=== PATIENT | male | born 1935 | race Caucasian/White ===

== ENCOUNTER 2019-03-05 10:25 | Inpatient (IN) | payer OTHER ==
[2019-03-05 11:09] LABS: Absolute Lymphocytes (CBC) 0.9 K/uL (0.7-4.9); Basophils % 0.3 % (0-1.3); Hematocrit 45.5 % (39.6-49.0); Lymphocytes % 9.4 % (15.3-44.8); MPV 10.6 fL (7.6-11.3); RBC Red Blood Cell Count 4.58 M/uL (4.33-5.43)
[2019-03-05 11:13] LABS: Protime INR 1.08
[2019-03-05] MEDS ORDERED: NA CHLORIDE 0.9% 1,000 ML ONE ×3 (11:13→14:39)
[2019-03-05 11:18] LABS: Blood Gas Oxyhemoglobin 85.6 % (94-97); Blood O2 Saturation 87.9 % (92-98.5)
[2019-03-05 11:36] LABS: ALT/SGPT 48 U/L (12-78); AST/SGOT 27 U/L (15-37); Albumin 3.7 g/dL (3.4-5.0); Alkaline Phosphatase 70 U/L (45-117); BUN Blood Urea Nitrogen 54 mg/dL (7-18); Bicarbonate 25 mmol/L (21-32); Bilirubin Direct 0.4 mg/dL (0-0.2); Bilirubin Total 1.3 mg/dL (0.2-1.0); Creatine Phosphokinase 496 U/L (39-308); Lipase 691 U/L (73-393); Potassium 5.4 mmol/L (3.5-5.1); Protein, Total 9.6 g/dL (6.4-8.2); Sodium Level 123 mmol/L (136-145); Troponin (Emerg Dept Use Only) < 0.02 ng/mL (0.0-0.045)
[2019-03-05 11:42] LABS: Glucose Level 1468 mg/dL (74-106)
--- NOTE | 2019-03-05 11:53 | RAD REPORT ---
EXAM DESCRIPTION: RAD - Chest Single View - 03/05/2019 11:37 am CLINICAL HISTORY: DYSPNEA Chest pain. COMPARISON: Chest Pa And Lat (2 Views) dated 04/01/2018; Chest Single View dated 11/26/2016; Chest Si ngle View dated 08/06/2016; Chest Pa And Lat (2 Views) dated 11/14/2015 FINDINGS: Portable technique limits examination quality. Linear opacities are present in both lung bases likely atelectasis. No focal infiltrate is seen sugge sting pneumonia. The heart is normal in size. No displaced fractures.Aortic atherosclerosis. IMPRESSION: Linear subsegmental atelectasis is present in both lung bases.
[2019-03-05] MEDS ORDERED: INSULIN -REGULAR HUMAN 100 UNIT in NA CHLORIDE 0.9% 100 ML IV SCH ×2 (12:00→18:03)
--- NOTE | 2019-03-05 12:09 | RAD REPORT ---
EXAM DESCRIPTION: CT - Thorax Wo Con CLINICAL HISTORY: Chest pain dyspnea COMPARISON: Thorax Wo Con dated 10/10/2016; Chest Single View dated 03/05/2019 FINDINGS: Emphysematous changes are present throughout the lungs. Bronchiectasis is present in both posterior lower lobes with mucus plugging suspected medially. Mild atelectasis is also present in bot h lung bases. No pleural thickening or pleural effusion. No pneumothorax. No axillary, mediastinal or hilar adenopathy. No acute fracture seen. Fatty liver. All CT scans are performed using dose optimization technique as appropriate and may include automated exposure control or mA/KV adjustment according to patient size. IMPRESSION: Emphysema with mild bronchiectasis in both posterior lung bases with mucus plugging evid ent.
[2019-03-05] MEDS ORDERED: ALBUTEROL 2.5 MG/3 ML NEB SOL ONE (12:24)
[2019-03-05] MEDS ORDERED: Levofloxacin 750mg IV 750 MG/150 ML BAG IV ONE (12:57)
[2019-03-05 13:26] LABS: Urine Blood 2+ (NEG); Urine Glucose 2+ (NEG); Urine Protein NEGATIVE (NEG); Urine Specific Gravity 1.005 (1.005-1.030); Urine pH 5.5 (5.0-7.0)
--- NOTE | 2019-03-05 13:32 | ER ---
Nurse's Notes [facility] Name: Javi Pickett Age: 83 yrs Sex: Male : 1935 Arrival Date: 03/05/2019 Time: 10:36 Bed 8 Private MD: Diagnosis: Acute and chronic respiratory failure with hypoxia;Diabetes mellitus due to underlying condition with hyperosmolarity without nonketotic hyperglycemic-hyperosmolar coma ([facility]);Dehydration;Acute kidney failure;Other sepsis;Hyperkalemia Presentation: 03/05 10:36 Presenting complaint: EMS states: Patient fell last night in his bathroom, patient aj1 reports that he was tired after taking his night time medication so he slept on the bathroom floor. EMS reports that patient had pillows and blankets in the bathroom. Patient was 82% on room air upon EMS, Patient was given albuterol and atrovent nebulizer en route. Patient reports shortness of breath since last night, productive cough, nasal congestion. Denies fever. Patient appears drowsy and falls asleep during conversation. Patient reports that he takes his sleeping medications at midnight and usually sleep until between noon and 2. Breath sound with rhonchi bilaterally. Transition of care: patient was not received from another setting of care. Onset of symptoms was March 05, 2019. Risk Assessment: Do you want to hurt yourself or someone else? Patient reports no desire to harm self or others. Initial Sepsis Screen: Does the patient meet any 2 criteria? Altered Mental Status. HR > 90 bpm. Yes Does the patient have a suspected source of infection? Yes: Productive cough/pneumonia. Care prior to arrival: None. 10:36 Method Of Arrival: EMS: [facility] aj1 10:36 Acuity: KAM 2 aj1 Triage Assessment: 10:47 General: Appears in no apparent distress. comfortable, Behavior is calm, cooperative, aj1 appropriate for age. Pain: Denies pain. Respiratory: Reports shortness of breath Onset: The symptoms/episode began/occurred yesterday, the patient has mild shortness of breath. Historical: - Allergies: 10:47 NKDA; aj1 - Home Meds: 10:47 Flexeril 10 mg Oral tab 1 tab 3 times per day [Active]; tamsulosin 0.4 mg oral cp24 1 aj1 cap once daily [Active]; Avodart 0.5 mg Oral cap 1 cap once daily [Active]; levothyroxine 88 mcg tab 1 tab once daily [Active]; zaleplon 10 mg oral cap 1 cap at bedtime [Active]; Lyrica 150 mg Oral 2 times per day [Active]; Seroquel 50 mg Oral tab at bedtime [Active]; spironolacton-hydrochlorothiaz 25-25 mg Oral tab 1 tab once daily [Active]; Zocor 40 mg oral tab once daily [Active]; metoprolol tartrate 50 mg oral tab once daily [Active]; hydrocodone-acetaminophen 5-325 mg oral tab as needed [Active]; - PMHx: 10:47 chronic back pain; COPD; Hypertension; Hypothyroidism; CHF; Hyperlipidemia; aj1 - Immunization history:: Flu vaccine is up to date. - Social history:: Smoking status: Patient/guardian denies using tobacco. - Ebola Screening: : Patient denies travel to an Ebola-affected area in the 21 days before illness onset. Screenin:48 Abuse screen: Denies threats or abuse. Denies injuries from another. Nutritional aj1 screening: No deficits noted. Tuberculosis screening: No symptoms or risk factors identified. 16:30 Fall Risk Fall in past 12 months (25 points). Secondary diagnosis (15 points) impaired aj1 mobility, IV access (20 points). Ambulatory Aid- None/Bed Rest/Nurse Assist (0 pts). Gait- Weak (10 pts.). Mental Status- Overestimates/Forgets Limitations (15 pts.). Total Ramos Fall Scale indicates High Risk Score (45 or more points). Fall prevention measures have been instituted. Family Present and informed to notify staff if the need to leave the bedside As available patient and family educated on Fall Prevention Program and Strategies. Assessment: 10:48 General: Appears comfortable, Behavior is calm, cooperative. Pain: Denies pain. Neuro: aj1 Level of Consciousness is drowsy, falls asleep during conversation. Oriented to person, place, time, situation. Cardiovascular: Denies chest pain, Heart tones S1 S2 present Patient's skin is warm and dry. Rhythm is regular. Respiratory: Reports shortness of breath Airway is patent Respiratory effort is even, unlabored, Respiratory pattern is regular, symmetrical, Breath sounds with rhonchi bilaterally. the patient has mild shortness of breath. GI: No signs and/or symptoms were reported involving the gastrointestinal system. : No signs and/or symptoms were reported regarding the genitourinary system. EENT: No signs and/or symptoms were reported regarding the EENT system. Derm: Skin is dry, Skin is pale, skin tear noted to left elbow and left knee. Musculoskeletal: No signs and/or symptoms reported regarding the musculoskeletal system. Circulation, motion, and sensation intact. 11:45 Reassessment: Patient appears in no apparent distress at this time. No changes from aj1 previously documented assessment. Patient and/or family updated on plan of care and expected duration. Pain level reassessed. Patient is alert, oriented x 3, equal unlabored respirations, skin warm/dry/pink. 12:45 Reassessment: Patient and/or family updated on plan of care and expected duration. Pain aj1 level reassessed. General: Appears in no apparent distress. comfortable, Behavior is calm, cooperative, appropriate for age. Pain: Denies pain. Neuro: Level of Consciousness is awake, alert, obeys commands, Oriented to person, place, time, situation. Cardiovascular: Patient's skin is warm and dry. Rhythm is junctional rhythm. Respiratory: Airway is patent Respiratory effort is even, unlabored, Respiratory pattern is regular, symmetrical. Derm: Skin is pale, patients forearms and hands appear dusky. 13:45 Reassessment: Patient appears in no apparent distress at this time. No changes from aj1 previously documented assessment. Patient and/or family updated on plan of care and expected duration. Pain level reassessed. Patient is alert, oriented x 3, equal unlabored respirations, skin warm/dry/pink. 14:45 Reassessment: Patient and/or family updated on plan of care and expected duration. Pain aj1 level reassessed. General: Appears in no apparent distress. comfortable, Behavior is calm, cooperative, appropriate for age. Pain: Denies pain. Neuro: Level of Consciousness is awake, alert, obeys commands, Oriented to person, place, time, situation. Cardiovascular: Patient's skin is warm and dry. Rhythm is sinus rhythm. Respiratory: Airway is patent Respiratory effort is even, unlabored, Respiratory pattern is regular, symmetrical. Derm: Skin is pale. Musculoskeletal: Circulation, motion, and sensation intact. 15:45 Reassessment: Patient appears in no apparent distress at this time. No changes from aj1 previously documented assessment. Patient and/or family updated on plan of care and expected duration. Pain level reassessed. Patient is alert, oriented x 3, equal unlabored respirations, skin warm/dry/pink. 16:30 Reassessment: Patient charting continued in [facility] from this point on. aj1 Vital Signs: 10:35 Pulse Ox 83% on R/A; aj1 10:36 BP 133 / 64 RA Sitting (auto/reg); Pulse 100; Pulse Ox 90% on 4 lpm NC; mb4 10:50 Temp 97.1(O); aj1 10:55 Weight 90.72 kg (R); Height 6 ft. 1 in. (185.42 cm) (R); aj1 11:06 BP 132 / 79; Pulse 98; Resp 19; Pulse Ox 93% on 4 lpm NC; aj1 11:36 BP 120 / 79 LA (auto/); Pulse 93 MON; Resp 17 S; Pulse Ox 93% on 4 lpm NC; mb4 12:06 BP 121 / 73; Pulse 88; Resp 18; Pulse Ox 98% on Nebulizer Mask; aj1 12:36 BP 112 / 89; Pulse 94; Resp 20; Pulse Ox 95% on Nebulizer Mask; aj1 13:06 BP 112 / 85; Pulse 93; Resp 20; Pulse Ox 98% on 4 lpm NC; aj1 13:36 BP 127 / 85; Pulse 95; Resp 18; Pulse Ox 94% on 4 lpm NC; aj1 14:06 BP 117 / 84; Pulse 96; Resp 20; Pulse Ox 96% on 4 lpm NC; aj1 14:36 BP 112 / 87; Pulse 93; Resp 18; Pulse Ox 93% on 4 lpm NC; aj1 15:00 BP 122 / 75; Pulse 95; Resp 20; Pulse Ox 95% on 4 lpm NC; aj1 15:30 BP 116 / 92; Pulse 95; Resp 22; Pulse Ox 95% 4 lpm ; aj1 16:00 BP 127 / 83; Pulse 99; Resp 20; Pulse Ox 97% on 4 lpm NC; aj1 10:55 Body Mass Index 26.39 (90.72 kg, 185.42 cm) aj1 ED Course: 10:36 Patient arrived in ED. aj1 10:36 Patient has correct armband on for positive identification. Bed in low position. Call mb4 light in reach. Side rails up X2. school lunch monitor on. Pulse ox on. NIBP on. 10:39 EKG done, by electrostatic powder coating technician. reviewed by Tommie GREENWOOD. tc 10:41 Triage completed. aj1 10:44 Tommie Nuñez PA is PHCP. jr8 10:44 Jovan Ramsey MD is Attending Physician. jr8 10:47 Arm band placed on. aj1 10:48 Shital Trinh, KEYSHAWN is Primary Nurse. aj1 10:48 No provider procedures requiring assistance completed. aj1 11:49 Chest Single View XRAY In Process Unspecified. EDMS 12:06 CT Chest Wo Con In Process Unspecified. EDMS 12:30 Lopez cath inserted, using sterile technique, 16 Fr., by entry level management, balloon inflated, to aj1 gravity drainage, urine specimen collected. Patient tolerated well. 13:29 Codey Pringle MD is Hospitalizing Provider. jr8 13:29 Missed attempt(s): 22 gauge in left forearm. Bleeding controlled, band aid applied, mb4 catheter tip intact. 14:17 Dressings: Kerlix X 1; left antecubital area non-adherent dressing x 1 left antecubital mb4 area. Wound care:. 14:30 Inserted saline lock: 20 gauge in left antecubital area, using aseptic technique. aj1 16:00 Lab(s) recollected, by me, sent to lab. mb4 16:30 Patient admitted, IV remains in place. aj1 Administered Medications: 11:18 Drug: NS 0.9% (30 ml/kg) 30 ml/kg Route: IV; Rate: bolus; Site: right forearm; aj1 14:52 Follow up: IV Status: Completed infusion; IV Intake: 2700ml aj1 12:35 Drug: Insulin Drip - (Insulin Regular Human 100 units, NS 0.9% 100 ml) {Co-Signature: aj1 ca1 (Gertrude Fields RN).} Route: IV; Rate: calculated rate; Site: right forearm; 18:00 Follow up: IV Status: Infusion continued upon admission aj1 12:35 Drug: Albuterol 2.5 mg Route: Inhalation; aj1 13:06 Drug: Albuterol 2.5 mg Route: Inhalation; aj1 13:45 Drug: Albuterol 2.5 mg Route: Inhalation; aj1 16:10 Follow up: Response: No adverse reaction aj1 13:53 Drug: LevaQUIN 750 mg Volume: 150 ml; Route: IVPB; Infused Over: 90 mins; Site: left aj1 antecubital; 16:10 Follow up: IV Status: Completed infusion; IV Intake: 150ml aj1 22:12 Follow up: IV Status: Infusion continued upon admission; IV Intake: 200ml aj1 14:52 Drug: NS 0.9% 1000 ml Route: IV; Rate: 100 ml/hr; Site: right forearm; aj1 Point of Care Testing: Blood Glucose: 13:30 Blood Glucose: High (>450 mg/dL); aj1 14:30 Blood Glucose: High (>450 mg/dL); aj1 Ranges: Intake: 14:52 IV: 2700ml; Total: 2700ml. aj1 16:10 IV: 150ml; Total: 2850ml. aj1 22:12 IV: 200ml; Total: 3050ml. aj1 Outcome: 13:31 Decision to Hospitalize by Provider. jr8 18:00 Admitted to ICU accompanied by nurse, accompanied by sissy, family with patient, via aj1 stretcher, with oxygen, on monitor, with chart, Report called to KEYSHAWN Penaloza in ICU 18:00 critical 18:00 Discharge instructions given to family, Instructed on the need for admit, Demonstrated understanding of instructions. 18:54 Patient left the ED. aj1 Signatures: Dispatcher [employer] Shital Ibrahim RN RN aj1 Tommie Nuñez PA PA jr8 Lucita Chang EKG Tech EK Idania Bang 4 Gertrude Fields RN ca1
--- NOTE | 2019-03-05 13:33 | EDPHYS ---
Physician Documentation [facility] Name: Javi Pickett Age: 83 yrs Sex: Male : 1935 Arrival Date: 03/05/2019 Time: 10:36 Bed 8 Private MD: ED Physician Jovan Ramsey HPI: 03/05 13:32 This 83 yrs old Male presents to ER via EMS with complaints of Shortness Of jr8 Breath. 13:32 The patient has shortness of breath at rest. Onset: The symptoms/episode began/occurred jr8 gradually, 2 day(s) ago, and became worse and became persistent. Duration: The symptoms are continuous. The patient's shortness of breath is aggravated by nothing, is alleviated by nothing. Associated signs and symptoms: Pertinent positives: general weakness and near syncope . Severity of symptoms: At their worst the symptoms were moderate in the emergency department the symptoms are unchanged. The patient has not experienced similar symptoms in the past. The patient has not recently seen a physician. Historical: - Allergies: 10:47 NKDA; aj1 - Home Meds: 10:47 Flexeril 10 mg Oral tab 1 tab 3 times per day [Active]; tamsulosin 0.4 mg oral cp24 1 aj1 cap once daily [Active]; Avodart 0.5 mg Oral cap 1 cap once daily [Active]; levothyroxine 88 mcg tab 1 tab once daily [Active]; zaleplon 10 mg oral cap 1 cap at bedtime [Active]; Lyrica 150 mg Oral 2 times per day [Active]; Seroquel 50 mg Oral tab at bedtime [Active]; spironolacton-hydrochlorothiaz 25-25 mg Oral tab 1 tab once daily [Active]; Zocor 40 mg oral tab once daily [Active]; metoprolol tartrate 50 mg oral tab once daily [Active]; hydrocodone-acetaminophen 5-325 mg oral tab as needed [Active]; - PMHx: 10:47 chronic back pain; COPD; Hypertension; Hypothyroidism; CHF; Hyperlipidemia; aj1 - Immunization history:: Flu vaccine is up to date. - Social history:: Smoking status: Patient/guardian denies using tobacco. - Ebola Screening: : Patient denies travel to an Ebola-affected area in the 21 days before illness onset. ROS: 13:32 Eyes: Negative for injury, pain, redness, and discharge, ENT: Negative for injury, jr8 pain, and discharge, Neck: Negative for injury, pain, and swelling, Cardiovascular: Negative for chest pain, palpitations, and edema, Abdomen/GI: Negative for abdominal pain, nausea, vomiting, diarrhea, and constipation, Back: Negative for injury and pain, MS/Extremity: Negative for injury and deformity, Skin: Negative for injury, rash, and discoloration. 13:32 Respiratory: Positive for dyspnea on exertion, shortness of breath. 13:32 Neuro: Positive for near syncope. Exam: 13:32 Eyes: Pupils equal round and reactive to light, extra-ocular motions intact. Lids and jr8 lashes normal. Conjunctiva and sclera are non-icteric and not injected. Cornea within normal limits. Periorbital areas with no swelling, redness, or edema. ENT: Nares patent. No nasal discharge, no septal abnormalities noted. Tympanic membranes are normal and external auditory canals are clear. Oropharynx with no redness, swelling, or masses, exudates, or evidence of obstruction, uvula midline. Mucous membranes dry. Neck: Trachea midline, no thyromegaly or masses palpated, and no cervical lymphadenopathy. Supple, full range of motion without nuchal rigidity, or vertebral point tenderness. No Meningismus. Cardiovascular: Regular rate and rhythm with a normal S1 and S2. No gallops, murmurs, or rubs. Normal PMI, no JVD. No pulse deficits. 13:32 Abdomen/GI: Soft, non-tender, with normal bowel sounds. No distension or tympany. No guarding or rebound. No evidence of tenderness throughout. Back: No spinal tenderness. No costovertebral tenderness. Full range of motion. MS/ Extremity: Pulses equal, no cyanosis. Neurovascular intact. Full, normal range of motion. Neuro: Awake and alert, GCS 15, oriented to person, place, time, and situation. Cranial nerves II-XII grossly intact. Motor strength 5/5 in all extremities. Sensory grossly intact. Cerebellar exam normal. Normal gait. 13:32 Constitutional: The patient appears alert, sleepy 13:32 Respiratory: the patient does not display signs of respiratory distress, Respirations: tachypnea, that is mild, Breath sounds: are clear throughout, no bronchial sounds, no decreased breath sounds, no rales, rhonchi, no stridor, no wheezing. 13:32 Skin: Appearance: Color: normal in color, pink, Temperature: normal temperature, Moisture: dry. Vital Signs: 10:35 Pulse Ox 83% on R/A; aj1 10:36 BP 133 / 64 RA Sitting (auto/reg); Pulse 100; Pulse Ox 90% on 4 lpm NC; mb4 10:50 Temp 97.1(O); aj1 10:55 Weight 90.72 kg (R); Height 6 ft. 1 in. (185.42 cm) (R); aj1 11:06 BP 132 / 79; Pulse 98; Resp 19; Pulse Ox 93% on 4 lpm NC; aj1 11:36 BP 120 / 79 LA (auto/); Pulse 93 MON; Resp 17 S; Pulse Ox 93% on 4 lpm NC; mb4 12:06 BP 121 / 73; Pulse 88; Resp 18; Pulse Ox 98% on Nebulizer Mask; aj1 12:36 BP 112 / 89; Pulse 94; Resp 20; Pulse Ox 95% on Nebulizer Mask; aj1 13:06 BP 112 / 85; Pulse 93; Resp 20; Pulse Ox 98% on 4 lpm NC; aj1 13:36 BP 127 / 85; Pulse 95; Resp 18; Pulse Ox 94% on 4 lpm NC; aj1 14:06 BP 117 / 84; Pulse 96; Resp 20; Pulse Ox 96% on 4 lpm NC; aj1 14:36 BP 112 / 87; Pulse 93; Resp 18; Pulse Ox 93% on 4 lpm NC; aj1 15:00 BP 122 / 75; Pulse 95; Resp 20; Pulse Ox 95% on 4 lpm NC; aj1 15:30 BP 116 / 92; Pulse 95; Resp 22; Pulse Ox 95% 4 lpm ; aj1 16:00 BP 127 / 83; Pulse 99; Resp 20; Pulse Ox 97% on 4 lpm NC; aj1 10:55 Body Mass Index 26.39 (90.72 kg, 185.42 cm) aj1 MDM: 10:44 Patient medically screened. [facility] 13:27 Data reviewed: vital signs, nurses notes, lab test result(s), EKG, radiologic studies, 8 CT scan, plain films. Data interpreted: Pulse oximetry: on room air is 83 %. Interpretation: normal. Counseling: I had a detailed discussion with the patient and/or guardian regarding: the historical points, exam findings, and any diagnostic results supporting the discharge/admit diagnosis, lab results, radiology results, the need for further work-up and treatment in the hospital. Physician consultation: Codey Pringle MD was called at 13:29, was contacted at 13:29, regarding admission, to the ICU, patient's condition, and will see patient in unit. 13:31 ED course: Discussed new onset of problems with patient and . Understood that he jr8 will be going to ICU for next 1-2 days . 03/05 10:54 Order name: ABG [facility] 03/05 10:54 Order name: Basic Metabolic Panel; Complete Time: 11:44 [facility] 03/05 10:54 Order name: Blood Culture Adult (2) [facility] 03/05 10:54 Order name: CBC with Diff; Complete Time: 11: [facility] 03/05 10:54 Order name: CPK; Complete Time: 11:44 [facility] 03/05 10:54 Order name: Lactate; Complete Time: 11:43 [facility] 03/05 10:54 Order name: LFT's; Complete Time: 11:44 [facility] 03/05 10:54 Order name: Lipase; Complete Time: 11: [facility] 03/05 10:54 Order name: Procalcitonin; Complete Time: 11: [facility] 03/05 10:54 Order name: Protime (+inr); Complete Time: 11: [facility] 03/05 10:54 Order name: Ptt, Activated; Complete Time: 11: [facility] 03/05 10:54 Order name: Troponin (emerg Dept Use Only); Complete Time: 11:44 [facility] 03/05 10:54 Order name: Urine Microscopic Only; Complete Time: 14:21 [facility] 03/05 11:13 Order name: Glucose, Ancillary Testing; Complete Time: 11:21 [facility] 03/05 10:54 Order name: Chest Single View XRAY; Complete Time: 12:25 [facility] 03/05 11:42 Order name: Osmolality, Serum; Complete Time: 15:29 [facility] 03/05 11:50 Order name: ABG Arterial Blood Gas [facility] 03/05 13:21 Order name: Urine Dipstick--Ancillary (enter results); Complete Time: 13:37 3 03/05 13:42 Order name: Glucose; Complete Time: 14:21 [facility] 03/05 14:34 Order name: Glucose; Complete Time: 15:51 [facility] 03/05 15:35 Order name: Glucose [facility] 03/05 15:35 Order name: Troponin I [facility] 03/05 16:31 Order name: Lactate Sepsis 2 HR Follow-up; Complete Time: 16:31 [facility] 03/05 16:31 Order name: Glucose Level; Complete Time: 16:31 [facility] 03/05 16:31 Order name: Troponin I; Complete Time: 16:31 [facility] 03/05 16:34 Order name: Glucose [facility] 03/05 17:25 Order name: Glucose Level; Complete Time: 17:26 [facility] 03/05 17:28 Order name: Glucose [facility] 03/05 18:34 Order name: Glucose Level; Complete Time: 06:41 [facility] 03/05 18:51 Order name: Glucose, Ancillary Testing; Complete Time: 06:41 [facility] 03/05 10:54 Order name: Accucheck; Complete Time: 11:18 03/05 10:54 Order name: Cardiac monitoring; Complete Time: 10:55 [facility] 03/05 10:54 Order name: EKG - Nurse/Tech; Complete Time: 10:55 [facility] 03/05 10:54 Order name: IV Saline Lock - Large Bore; Complete Time: 10:55 03/05 10:54 Order name: Labs collected and sent; Complete Time: 10:55 [facility] 03/05 10:54 Order name: O2 Per Protocol; Complete Time: 10:56 03/05 10:54 Order name: O2 Sat Monitoring; Complete Time: 10:56 03/05 10:54 Order name: Urine Dipstick-Ancillary (obtain specimen); Complete Time: 13:53 [facility] 03/05 11:46 Order name: Lopez; Complete Time: 13:45 [facility] 03/05 11:50 Order name: CT Chest Wo Con; Complete Time: 12:25 [facility] 03/05 14:15 Order name: EKG Electrocardiogram [facility] 03/05 15:49 Order name: Labs - recollect needed; Complete Time: 16:09 eb Administered Medications: 11:18 Drug: NS 0.9% (30 ml/kg) 30 ml/kg Route: IV; Rate: bolus; Site: right forearm; aj1 14:52 Follow up: IV Status: Completed infusion; IV Intake: 2700ml aj1 12:35 Drug: Insulin Drip - (Insulin Regular Human 100 units, NS 0.9% 100 ml) {Co-Signature: aj1 ca1 (Gertrude Fields RN).} Route: IV; Rate: calculated rate; Site: right forearm; 18:00 Follow up: IV Status: Infusion continued upon admission aj1 12:35 Drug: Albuterol 2.5 mg Route: Inhalation; aj1 13:06 Drug: Albuterol 2.5 mg Route: Inhalation; aj1 13:45 Drug: Albuterol 2.5 mg Route: Inhalation; aj1 16:10 Follow up: Response: No adverse reaction aj1 13:53 Drug: LevaQUIN 750 mg Volume: 150 ml; Route: IVPB; Infused Over: 90 mins; Site: left aj antecubital; 16:10 Follow up: IV Status: Completed infusion; IV Intake: 150ml aj1 22:12 Follow up: IV Status: Infusion continued upon admission; IV Intake: 200ml aj1 14:52 Drug: NS 0.9% 1000 ml Route: IV; Rate: 100 ml/hr; Site: right forearm; aj1 Point of Care Testing: Blood Glucose: 13:30 Blood Glucose: High (>450 mg/dL); aj1 14:30 Blood Glucose: High (>450 mg/dL); aj1 Ranges: Critical Glucose Levels:Adult <50 mg/dl or >400 mg/dl <40 mg/dl or >180 mg/dl Disposition: 13:31 Critical Care:. gordy Disposition: 03/05/19 13:31 Hospitalization ordered by Codey Pringle for Inpatient Admission. Preliminary diagnosis are Acute and chronic respiratory failure with hypoxia, Diabetes mellitus due to underlying condition with hyperosmolarity without nonketotic hyperglycemic-hyperosmolar coma (NKHHC), Dehydration, Acute kidney failure, Other sepsis, Hyperkalemia. - Bed requested for Intensive Care Unit. - Status is Inpatient Admission. aj1 - Condition is Fair. - Problem is new. - Symptoms have improved. UTI on Admission? No Critical care time excluding procedures: 13:31 Critical care time: Bedside Care: 20 minutes, Consultation: 10 minutes, Family jr8 Intervention: 15 minutes. Total time: 45 minutes Addendum: 03/10/2019 14:44 Co-signature as Attending Physician, Jovan Ramsey MD. g s Signatures: Dispatcher [employer] EDShital Kaur RN RN aj1 JacksonManasa bowie RN RN dw Tommie Nuñez, PA PA jr8 Jovan Ramsey MD MD Vilma Jimenez RN ca1 Corrections: (The following items were deleted from the chart) 03/05 14: 13:31 Hospitalization Ordered by Codey Pringle MD for Inpatient Admission. Preliminary eb diagnosis is Acute and chronic respiratory failure with hypoxia; Diabetes mellitus due to underlying condition with hyperosmolarity without nonketotic hyperglycemic-hyperosmolar coma (NKHHC); Dehydration; Acute kidney failure; Other sepsis; Hyperkalemia. Bed requested for Intensive Care Unit. Status is Inpatient Admission. Condition is Fair. Problem is new. Symptoms have improved. UTI on Admission? No. jr8 16:37 14:26 03/05/2019 13:31 Hospitalization Ordered by Codey Pringle MD for Inpatient Admission. Preliminary diagnosis is Acute and chronic respiratory failure with hypoxia; Diabetes mellitus due to underlying condition with hyperosmolarity without nonketotic hyperglycemic-hyperosmolar coma (NKHHC); Dehydration; Acute kidney failure; Other sepsis; Hyperkalemia. Bed requested for Intensive Care Unit. Status is Inpatient Admission. Condition is Fair. Problem is new. Symptoms have improved. UTI on Admission? No. eb 18:54 16:37 03/05/2019 13:31 Hospitalization Ordered by Codey Pringle MD for Inpatient aj1 Admission. Preliminary diagnosis is Acute and chronic respiratory failure with hypoxia; Diabetes mellitus due to underlying condition with hyperosmolarity without nonketotic hyperglycemic-hyperosmolar coma (NKHHC); Dehydration; Acute kidney failure; Other sepsis; Hyperkalemia. Bed requested for Intensive Care Unit. Status is Inpatient Admission. Condition is Fair. Problem is new. Symptoms have improved. UTI on Admission? No. dw
[2019-03-05 13:42] LABS: Urine Bacteria NONE SEEN /HPF (NONE SEEN); Urine RBC <5 /HPF (NONE SEEN)
[2019-03-05 13:43] LABS: Urine Culture Reflex Order NOT NEEDED
[2019-03-05 16:29] LABS: Troponin I < 0.02 ng/mL (0.0-0.045)
[2019-03-05 16:30] LABS: Glucose Level 964 mg/dL (74-106)
[2019-03-05] MEDS ORDERED: D50W 25 GM/50 ML SYRINGE IV PRN ×2 (18:03)
[2019-03-05] MEDS ORDERED: ONDANSETRON 4 MG/2 ML VIAL IV PRN (18:03)
[2019-03-05] MEDS ORDERED: GLUCAGON 1 MG/VIAL IM PRN (18:03)
[2019-03-05] MEDS: NA CHLORIDE 0.9% 1,000 ML IV SCH (18:03)
[2019-03-05] MEDS ORDERED: MORPHINE 4 MG/ML SYR IV PRN (18:03)
[2019-03-05] MEDS ORDERED: ENOXAPARIN 40 MG/0.4 ML SQ SCH (19:00)
[2019-03-05 19:29] LABS: Potassium 4.1 mmol/L (3.5-5.1)
[2019-03-05] MEDS ORDERED: HYDROCODONE/APAP 10/325 TAB PO PRN (19:59)
--- NOTE | 2019-03-05 20:10 | P.HP ---
Certification for Inpatient Patient admitted to: Inpatient With expected LOS: >2 Midnights Practitioner: I am a practitioner with admitting privileges, knowledge of patient current condition, hospital course, and medical plan of care. Services: Services provided to patient in accordance with Admission requirements found in Title 42 Section 412.3 of the Code of Federal Regulations Patient History Date of Service: 03/05/19 Reason for admission: FALLS OFTEN History of Present Illness: MR. MARX IS 83 YEARS OLD GM WITH COPD, SEVERE CHEMICAL NEUROPATHY, SEVERE INSOMNIA WHOSE LAST GLUCOSE WAS IN 110 RANGE COMES WITH FRQUENT FALLS, HAS GLUCOSE OF 1400 TODAY AND DEHYDRATION. I CHECKED MY RECORDS, I HAVE GIVEN HIM ORDER TO DO LAB WORK ABOUT5 TIMES IN LAST TWO YEARS BUT HE HAS NOT DONE SO. HE IS NOT FORGETFUL BUT HE JUST IGNORED THE ADVISE. 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 HE LATELY HAS BEEN LETHARGIC AND FALLING OFTEN PER . Allergies Albuterol Allergy (Mild, Uncoded 10/21/15 22:42) Unknown Home Medications: Dutasteride [Avodart*] 0.5 mg PO BEDTIME 08/07/13 Quetiapine [Seroquel*] 50 mg PO BEDTIME 08/07/13 Simvastatin 20 mg PO BEDTIME 08/07/13 Budesonide/Formoterol Fumarate [Symbicort 160-4.5 Mcg Inhaler] 1 puff IN DAILY 10/21/15 Cyclobenzaprine HCl [Flexeril] 10 mg PO TID PRN 10/21/15 Hydrocodone 10/APAP 325 [[place] 10/325*] 1 tab PO Q6HR PRN 10/21/15 Levothyroxine Sodium 88 mcg PO DAILY 10/21/15 Zaleplon [Sonata] 10 mg PO BEDTIME 10/21/15 Tamsulosin [Flomax*] 0.4 mg PO BEDTIME #30 cap 10/25/15 Pregabalin [Lyrica] 150 mg PO BID 03/05/19 Spironolact/Hydrochlorothiazid [Spironolactone-Hctz 25-25 Tab] 1 each PO DAILY 03/05/19 - Past Medical/Surgical History Has patient received pneumonia vaccine in the past: Yes Diabetic: No -: HTN -: BPH -: INSOMNIA -: HIGH CHOLESTEROL -: HYPOTHYROIDISM -: COPD -: CHRONIC BACK PAIN -: PARATHYROID nodule removed - Family History Mother -: Hypertension - Social History Smoking Status: Never smoker Alcohol use: Yes CD- Drugs: No Caffeine use: Yes Place of Residence: Home Review of Systems 10-point ROS is otherwise unremarkable General: Weakness, Malaise, As per HPI Respiratory: As per HPI Physical Examination - Vital Signs Temperature: 96.5 F Blood Pressure: 122/78 Pulse: 109 Respirations: 23 Pulse Ox (%): 98 - Physical Exam General: Oriented x3, Moderate distress, Other (LETHARGIC, CLINICALLY DEHYDRATED.) HEENT: Atraumatic, PERRLA, Mucous membr. moist/pink, EOMI, Sclerae nonicteric Neck: Supple, 2+ carotid pulse no bruit, No LAD, Without JVD or thyroid abnormality Respiratory: Diminished Cardiovascular: Regular rate/rhythm, Normal S1 S2 Gastrointestinal: Normal bowel sounds, No tenderness Musculoskeletal: No tenderness Integumentary: No rashes Neurological: Normal gait, Normal speech, Normal strength at 5/5 x4 extr, Normal tone, Normal affect Lymphatics: No axilla or inguinal lymphadenopathy - Studies Laboratory Data (last 24 hrs) 03/05/19 13:35: Glucose 1157 H* 03/05/19 10:51: PT 12.7 H, INR 1.08, APTT 26.4 03/05/19 10:51: WBC 10.0, Hgb 14.4, Hct 45.5, Plt Count 144 L 03/05/19 10:51: Sodium 123 L, Potassium 5.4 H, BUN 54 H, Creatinine 3.81 H, Glucose 1468 H*, Total Bilirubin 1.3 H, AST 27, ALT 48, Alkaline Phosphatase 70 , Lipase 691 H Assessment and Plan - Problems (Diagnosis) (1) Hyperglycemia Current Visit: Yes Status: Acute Plan: HE IS ON INSULIN DRIP. I RAISED TO 10 UNITS PER HOUR. HOURLY GLUCOSE AND REDUCE DRIP DOWN TO Q4H SLIDING SCALE WHEN GLUCOSE IS DOWN TO 400. THIS IS NOT DKA. SHOULD IMPROVE BY AM. (2) Newly diagnosed diabetes Current Visit: Yes Status: Acute Plan: CHECK CPEP LEVEL. INSULIN TEACHING. MAY BE ABLE TO GET OFF INSULIN. (3) COPD (chronic obstructive pulmonary disease) Current Visit: Yes Status: Chronic Plan: NEBS PRN. Qualifiers: COPD type: emphysema Emphysema type: unspecified Qualified Code(s): J43.9 - Emphysema, unspecified (4) Prerenal azotemia Current Visit: Yes Status: Acute (5) Prerenal azotemia Current Visit: Yes Status: Acute Plan: IV FLULIDS DAILY LABS. (6) Hypoxia Onset Date: 10/24/15 Current Visit: No Status: Chronic Plan: WORSE NOW WITH ACUTE ILLNESS. CT SHOWS NO MAJOR INFECTION. (7) Insomnia Current Visit: Yes Status: Chronic Plan: MOST MEDICINES HAVE NOT WORKED BUT SONATA AND QUETIAPEN WORKED. 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 HAS SEVERE NEUROPATHY. HE HAD NEUROPATHY WAY BEFORE THIS DIABETES ONSET. - Advance Directives Does patient have a Living Will: Yes Does patient have a Durable POA for Healthcare: Yes
[2019-03-05] MEDS: QUETIAPINE 25 MG TAB PO SCH (21:00)
[2019-03-05 21:04] VITALS: BMI 28.5
[2019-03-05] MEDS: PREGABALIN 75 MG CAP PO SCH (21:33)
[2019-03-05] MEDS: ATORVASTATIN 10 MG TAB PO SCH (21:33)
[2019-03-05] MEDS: TAMSULOSIN 0.4 MG SR CAP PO SCH (21:34)
[2019-03-05] MEDS: DUTASTERIDE 0.5 MG GEL CAP PO SCH (21:53)
[2019-03-06] MEDS: NA CHLORIDE 0.9% 1,000 ML IV SCH ×2 (01:00→17:53)
[2019-03-06] MEDS: INSULIN -REGULAR HUMAN 50 UNIT/0.5 ML ML SQ SCH ×7 (03:13→22:28)
[2019-03-06] MEDS: LEVOTHYROXINE SOD 0.088 MG TAB PO SCH (06:12)
[2019-03-06] MEDS ORDERED: D50W 25 GM/50 ML SYRINGE IV PRN (06:27)
[2019-03-06] MEDS ORDERED: GLUCAGON 1 MG/VIAL IM PRN (06:27)
--- NOTE | 2019-03-06 08:40 | EKG ---
Test Date: 2019-03-05 Test Time: 10:37:22 Marketing Production Coordinator: AROLDO MEASUREMENT RESULTS: Intervals: Rate: 100 AR: 188 QRSD: 96 QT: 340 QTc: 438 [place]: P: 56 AR: 188 QRS: -3 T: 86 INTERPRETIVE STATEMENTS: Normal sinus rhythm Normal ECG Compared to ECG 11/26/2016 11:54:57 No significant changes Electronically Signed On 03-06-19 08:39:20 CDT by Remi Kapadia
[2019-03-06] MEDS: INSULIN GLARGINE 100 UNITS/ML SQ SCH (08:48)
[2019-03-06 08:50] LABS: Absolute Lymphocytes (CBC) 1.2 K/uL (0.7-4.9); Basophils % 0.3 % (0-1.3); Hematocrit 42.9 % (39.6-49.0); MPV 10.3 fL (7.6-11.3); RBC Red Blood Cell Count 4.72 M/uL (4.33-5.43)
[2019-03-06] MEDS: ASPIRIN EC 81 MG TAB PO SCH (08:50)
[2019-03-06] MEDS: HOME MED 1 EA UNK (Budesonide/Formoterol Fumarate [Symbicort 160-4.5 Mcg Inhaler] 1 PUFF) IN SCH (09:00)
[2019-03-06 09:40] LABS: Magnesium 1.9 mg/dL (1.8-2.4); Potassium 4.3 mmol/L (3.5-5.1)
[2019-03-06] MEDS: PREGABALIN 75 MG CAP PO SCH (09:54)
[2019-03-06] MEDS ORDERED: Levofloxacin500mg IV 500 MG/100 ML BAG IV SCH (13:00)
[2019-03-06] MEDS: ALBUTEROL 2.5 MG/3 ML NEB SOL NEB PRN (14:55)
[2019-03-06] MEDS: IPRATROPIUM BROM 0.5MG/2.5ML NEB PRN (14:55)
[2019-03-06] MEDS ORDERED: ENOXAPARIN 30 MG/0.3 ML SQ SCH (17:00)
--- NOTE | 2019-03-06 17:15 | PN ---
Subjective: Mr. Pickett is doing a lot better, much more awake. He is denying any chest pain, nausea, vomiting. His breathing is always slightly labored. Objective: Abdomen: No guarding, no rebound, no rigidity. Chest: Revealed good breath sounds bilaterally. Vital Signs: Blood pressure 129/47, pulse is 111, respirations 25, temperature 98, pulse ox is down at 93% on 4 L nasal cannula. Laboratory Data: His ABG, pH 7.35, pCO2 43, PO2 59. His CBC is grossly normal except for platelets slightly low at 111,000. Sodium 139, potassium 4.3, BUN 56 , creatinine 3.3 lower than yesterday, bicarb of 24. Glucose is down to 323, calcium is down to 10.4. Assessment And Plan: 1. Hyperglycemia and new onset diabetes. This gentleman was given an order for a full blood work about 4 times in the last 3 years and has not done it yet. He probably is developing diabetes over couple of years. Last blood sugar in our office was about 2-1/2 years ago and 112. He is on Lantus 20 units once a day now. Insulin drip has been discontinued. He continues to be on IV fluids. He will need IV fluids until creatinine is lower down to a normal range. His baseline creatinine is normal. 2. Chronic obstructive pulmonary disease, currently stable. 3. High procalcitonin and lactic acid. I do not see any major signs of infection. This could be just because of having inflammation and catabolic status effect on the body tissue from severe hyperglycemia. Continue antibiotic that his lungs have some chronic tree-in-bud appearance on CT scan. 4. 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 Continue current medication. He is on tramadol at home. Prognosis overall guarded. RVD/MODL Voice ID: [id number] Report ID: [id number] CASEY
--- NOTE | 2019-03-06 17:16 | RAD REPORT ---
EXAM DESCRIPTION: RAD - Chest Single View - 03/06/2019 5:07 pm CLINICAL HISTORY: Fluid overload COMPARISON: March 05 TECHNIQUE: AP portable chest image was obtained 1704 hours . FINDINGS: Lung volumes are low. Lung base atelectasis present. No significant failure or volume over load. No focal infiltrate or mass in the mid or upper lung hoyos. Heart and vasculature are normal. No measurable pleural effusion and no pneumothorax. No acute bony abnormality seen. No acute aortic f indings suspected. IMPRESSION: Exam is limited by shallow inspiration. Lung base atelectasis is present. No significant failure or volume overload.
[2019-03-06] MEDS: DUTASTERIDE 0.5 MG GEL CAP PO SCH (20:36)
[2019-03-06] MEDS: ATORVASTATIN 10 MG TAB PO SCH (20:37)
[2019-03-06] MEDS: TAMSULOSIN 0.4 MG SR CAP PO SCH (20:37)
[2019-03-06] MEDS: QUETIAPINE 25 MG TAB PO SCH (20:37)
[2019-03-07] MEDS: INSULIN -REGULAR HUMAN 50 UNIT/0.5 ML ML SQ SCH ×5 (02:02→20:25)
[2019-03-07] MEDS: NA CHLORIDE 0.9% 1,000 ML IV SCH ×4 (02:04→23:58)
[2019-03-07] MEDS: LEVOTHYROXINE SOD 0.088 MG TAB PO SCH (05:36)
[2019-03-07 05:45] LABS: Basophils % 0.2 % (0-1.3); Hematocrit 39.3 % (39.6-49.0); Lymphocytes % 15.4 % (15.3-44.8); MPV 10.1 fL (7.6-11.3); RBC Red Blood Cell Count 4.35 M/uL (4.33-5.43)
[2019-03-07 05:52] LABS: Potassium 4.9 mmol/L (3.5-5.1)
[2019-03-07 07:43] LABS: Blood Morphology Comment NOTED (NOT SEEN); Platelet Estimate DECR; Urine White Blood Cell Casts OK
[2019-03-07] MEDS: INSULIN GLARGINE 100 UNITS/ML SQ SCH (08:05)
[2019-03-07] MEDS: ASPIRIN EC 81 MG TAB PO SCH (08:06)
[2019-03-07] MEDS: HOME MED 1 EA UNK (Budesonide/Formoterol Fumarate [Symbicort 160-4.5 Mcg Inhaler] 1 PUFF) IN SCH (08:11)
[2019-03-07] MEDS: IPRATROPIUM BROM 0.5MG/2.5ML NEB PRN ×2 (08:16→17:21)
[2019-03-07] MEDS: ALBUTEROL 2.5 MG/3 ML NEB SOL NEB PRN ×2 (08:16→17:21)
--- NOTE | 2019-03-07 14:26 | PN ---
Subjective: Mr. Pickett is doing lot better. Denies any chest pain, nausea, no vomiting, who has some gurgling on his breathing. He is otherwise comfortable. Physical Examination: Vital Signs: Blood pressure 122/58, pulse is 107, temperature 97.1. O2 saturation has shown some wo rsening 89% with 2 L nasal cannula. Chest: Bilateral minimal rales, decreased breath sounds. Heart: Rate regular. Abdomen: No guarding. No rebound or rigidity. Laboratory Examination: Creatinine is coming down from 3.5 to 3.05, BUN 58 over 3.05 creatinine, glu cose 229, calcium 7.7, which is not normalizing with IV hydration. His platelets have dropped to 83, 000, which is because of Lovenox subcu. Assessment And Plan: 1.Hyperglycemia has improved. He is on Lantus now . 2.Dehydration is improved, but the same time his pulmonary findings have shown some worsening. I wi ll redo a chest x-ray stat. His nebulizer treatments of albuterol ipratropium, will cut down the IV to 50 mL/h. We will order echocardiogram with Doppler. Prognosis remains guarded. He has chronic pulmonary issues with COPD from history of smoking and zoe mical exposure with testing. RVD/MODL Voice ID: [id number] Report ID: [id number]
[2019-03-07] MEDS: Levofloxacin 250mg IV 250 MG/50 ML BAG IV SCH (15:00)
--- NOTE | 2019-03-07 16:05 | RAD REPORT ---
EXAM DESCRIPTION: Chant Single View03/07/2019 3:21 pm CLINICAL HISTORY: sob COMPARISON: 03/06/2019 FINDINGS: Bibasilar opacities probably atelectasis, less likely pneumonia The upper lobes are clear. Patient remains in a poor degree of inspiration. Heart is normal size
--- NOTE | 2019-03-07 16:07 | RAD REPORT ---
EXAM DESCRIPTION: RAD - Knee Right 2 View - 03/07/2019 3:23 pm CLINICAL HISTORY: Knee pain FINDINGS: Chondrocalcinosis No fracture or dislocation Small joint effusion is suspected
[2019-03-07] MEDS ORDERED: LIDOCAINE 5% PATCH TOP SCH (17:00)
[2019-03-07] MEDS: TAMSULOSIN 0.4 MG SR CAP PO SCH (20:26)
[2019-03-07] MEDS: DUTASTERIDE 0.5 MG GEL CAP PO SCH (20:26)
[2019-03-07] MEDS: QUETIAPINE 25 MG TAB PO SCH (20:26)
[2019-03-07] MEDS: ATORVASTATIN 10 MG TAB PO SCH (20:26)
[2019-03-07 21:03] LABS: Arterial Blood Carboxyhemoglob 1.9 % (0-1.5); Blood Gas Oxyhemoglobin 92.8 % (94-97)
[2019-03-07] MEDS: IPRATROPIUM BROM 0.5MG/2.5ML NEB SCH (21:05)
[2019-03-07] MEDS: ALBUTEROL 2.5 MG/3 ML NEB SOL NEB SCH (21:05)
[2019-03-08] MEDS: ALBUTEROL 2.5 MG/3 ML NEB SOL NEB SCH ×4 (01:40→19:25)
[2019-03-08] MEDS: IPRATROPIUM BROM 0.5MG/2.5ML NEB SCH ×4 (01:40→19:25)
[2019-03-08] MEDS: LEVOTHYROXINE SOD 0.088 MG TAB PO SCH (05:28)
[2019-03-08 06:22] LABS: Absolute Lymphocytes (CBC) 0.8 K/uL (0.7-4.9); Basophils % 0.3 % (0-1.3); Lymphocytes % 12.3 % (15.3-44.8); MPV 9.4 fL (7.6-11.3); RBC Red Blood Cell Count 3.65 M/uL (4.33-5.43)
[2019-03-08 06:40] LABS: Potassium 3.6 mmol/L (3.5-5.1)
[2019-03-08] MEDS: INSULIN GLARGINE 100 UNITS/ML SQ SCH (07:43)
[2019-03-08] MEDS: INSULIN -REGULAR HUMAN 50 UNIT/0.5 ML ML SQ SCH ×4 (07:44→21:20)
[2019-03-08] MEDS: ASPIRIN EC 81 MG TAB PO SCH (08:46)
[2019-03-08] MEDS ORDERED: LIDOCAINE 5% PATCH TOP SCH (09:00)
[2019-03-08] MEDS ORDERED: POTASSIUM CL SA 10 MEQ TAB PO ONE (09:00)
--- NOTE | 2019-03-08 09:02 | RAD REPORT ---
EXAM DESCRIPTION: RAD - Chest Single View - 03/08/2019 8:49 am CLINICAL HISTORY: Dyspnea, adventitious breath sounds COMPARISON: March 07 TECHNIQUE: AP portable chest image was obtained 0846 hours . FINDINGS: Lung volumes are lobe matching prior study. Lung base atelectasis is evident. No progressi ve lung parenchymal process seen. Bilateral pleural effusions are still evident. Heart size is normal and stable. No pneumothorax. Trachea is midline. IMPRESSION: Limited shallow inspiration film showing lung base atelectasis and small pleural effusio ns. Chest findings are stable from prior study.
[2019-03-08] MEDS: TRAMADOL HCL 50 MG TAB PO PRN (16:56)
[2019-03-08] MEDS: LIDOCAINE 5% PATCH TOP SCH (18:33)
--- NOTE | 2019-03-08 18:51 | PN ---
Subjective: Patient is feeling sleepy, fatigued, and otherwise is awake when aroused. Denies any ch est pain, nausea, vomiting. He is short of breath at rest minimally. Physical Examination: Vital Signs: Blood pressure 126/56, pulse 105, respirations 19, temperature 97.7. HEENT: No JVD. No carotid bruits. Heart: Regular. CHEST: Decreased breath sounds bilaterally. Minimal wheezing. Abdomen: No guarding, no rebound, no rigidity. Laboratory Data: His WBC count is normal, hemoglobin 11, hematocrit 33, platelets 86,000, came up sl ightly after we stopped his Lovenox. Sodium 139, potassium 3.6, chloride 108, BUN 50, creatinine is 2.3, and glucose 326. Calcium is up to 9.3. Yesterday, I did ABG which showed a pH of 7.40, pCO2 36 , PO2 71, O2 saturation of 92% on 32% FiO2 or 4 L nasal cannula. His right knee has some pain from t he fall and x-ray showed some arthritis. No broken bones. Assessment And Plan: Dehydration clinically improving. Gentle hydration given from to shortness of breath from COPD. There is no signs of congestive heart failure, pneumonia, or pulmonary embolism. CT angiogram currently because of creatinine of 2.3 for which he could not tolerate Lovenox as his pl atelets started to drop down to 8000. 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 Nebulizer treatment q.6 hours routine instead of p.r.n. Avoiding steroids right now because his sugar is high. He came with 1500 glucose and his A1c is about 11. Prognosis remains guarded. He is recovering from multisystem problem he had stopping his hydrocodone and Seroquel as he has remained v sunni stuporous. RVD/MODL Voice ID: [id number] Report ID: [id number]
[2019-03-08] MEDS: NA CHLORIDE 0.9% 1,000 ML IV SCH (19:56)
[2019-03-08] MEDS: DUTASTERIDE 0.5 MG GEL CAP PO SCH (20:09)
[2019-03-08] MEDS: APIXABAN 2.5 MG TABLET PO SCH (20:09)
[2019-03-08] MEDS: TAMSULOSIN 0.4 MG SR CAP PO SCH (20:09)
[2019-03-08] MEDS: ATORVASTATIN 10 MG TAB PO SCH (20:10)
[2019-03-09] MEDS: POLYETHYL GLY 3350 17 GM/DOSE PO PRN ×2 (01:08→21:27)
[2019-03-09] MEDS: ALBUTEROL 2.5 MG/3 ML NEB SOL NEB SCH ×4 (01:15→19:45)
[2019-03-09] MEDS: IPRATROPIUM BROM 0.5MG/2.5ML NEB SCH ×4 (01:15→19:45)
[2019-03-09] MEDS: LEVOTHYROXINE SOD 0.088 MG TAB PO SCH (05:41)
[2019-03-09] MEDS: NA CHLORIDE 0.9% 1,000 ML IV SCH ×2 (05:52→12:27)
[2019-03-09 07:04] LABS: Absolute Lymphocytes (CBC) 0.8 K/uL (0.7-4.9); Basophils % 0.2 % (0-1.3); Hematocrit 34.4 % (39.6-49.0); Lymphocytes % 10.3 % (15.3-44.8); MPV 9.6 fL (7.6-11.3); RBC Red Blood Cell Count 3.76 M/uL (4.33-5.43)
[2019-03-09 07:18] LABS: Potassium 3.9 mmol/L (3.5-5.1)
[2019-03-09] MEDS: TRAMADOL HCL 50 MG TAB PO PRN ×2 (09:33→21:26)
[2019-03-09] MEDS: ASPIRIN EC 81 MG TAB PO SCH (09:33)
[2019-03-09] MEDS: APIXABAN 2.5 MG TABLET PO SCH ×2 (09:33→21:09)
[2019-03-09] MEDS: INSULIN GLARGINE 100 UNITS/ML SQ SCH (09:34)
[2019-03-09] MEDS: INSULIN -REGULAR HUMAN 50 UNIT/0.5 ML ML SQ SCH ×4 (09:35→21:11)
--- NOTE | 2019-03-09 10:52 | ECHO ---
HEIGHT: 6 ft 1 in WEIGHT: 216 lb 0 oz DATE OF STUDY: 03/09/[address]: Codey Pringle MD 2-DIMENSIONAL: YES M.MODE: YES DOPPLER: YES COLOR FLOW: YES TDS: YES PORTABLE: NO DEFINITY: NO BUBBLE STUDY: NO DIAGNOSIS: EDEMA, DYSPNEA CARDIAC HISTORY: CATHERIZATION: NO SURGERY: NO PROSTHETIC VALVE: NO PACEMAKER: NO MEASUREMENTS (cm) DIASTOLIC (NORMALS) SYSTOLIC (NORMALS) IVSd 1.1 (0.6-1.2) LA Diam 3.9 (1.9-4.0) LVEF 60-69% LVIDd 4.3 (3.5-5.7) LVIDs 3.0 (2.0-3.5) %FS % LVPWd 1.3 (0.6-1.2) Ao Diam 2.6 (2.0-3.7) 2 DIMENSIONAL ASSESSMENT: RIGHT ATRIUM: NORMAL LEFT ATRIUM: DILATED RIGHT VENTRICLE: NORMAL LEFT VENTRICLE: NORMAL TRICUSPID VALVE: NORMAL MITRAL VALVE: NORMAL PULMONIC VALVE: NORMAL AORTIC VALVE: SCLEROSIS PERICARDIAL EFFUSION: NONE AORTIC ROOT: NORMAL LEFT VENTRICULAR WALL MOTION: NORMAL. DOPPLER/COLOR FLOW: IMPAIRED LEFT VENTRICULAR RELAXATION. NO SIGNIFICANT AORTIC STENOSIS OR AORTIC REGURGITATION. COMMENTS: NORMAL LEFT VENTRICULAR EJECTION FRACTION. DILATED LEFT ATRIUM. AORTIC SCLEROSIS WITH NO AORTIC STENOSIS OR AORTIC REGURGITATION. TECHNOLOGIST: MATHEUS WARD
[2019-03-09] MEDS: PIPER/TAZO/NS 2.25gm 2.25 GM/50 ML BAG IVPB SCH ×3 (12:06→23:45)
[2019-03-09] MEDS: Levofloxacin 250mg IV 250 MG/50 ML BAG IV SCH (12:06)
[2019-03-09] MEDS: LIDOCAINE 5% PATCH TOP SCH (16:45)
[2019-03-09] MEDS: TAMSULOSIN 0.4 MG SR CAP PO SCH (21:08)
[2019-03-09] MEDS: DUTASTERIDE 0.5 MG GEL CAP PO SCH (21:08)
[2019-03-09] MEDS: ATORVASTATIN 10 MG TAB PO SCH (21:09)
--- NOTE | 2019-03-09 22:45 | PN ---
Subjective: Mr. Stanley is doing okay. Does not have any chest pain, nausea, or vomiting. He is coughing up some yellow-green phlegm now. Physical Examination: Vital Signs: Blood pressure 128/62, pulse 103, and temperature 97.3. HEENT: No JVD. No carotid bruits. Heart: REGULAR S1 AND S2. Has a midsystolic aortic murmur. Chest: Decreased breath sounds bilaterally. Minimal wheezing. Laboratory Data: On lab examination, glucose 306. V/Q scan is done, report is pending. BUN is down to 41 and creatinine 1.85. His D-dimer yesterday was 4833 since when I put him on Eliquis 2.5 mg p.o. b.i.d. Medications: Reviewed. Assessment And Plannin. Chronic obstructive pulmonary disease exacerbation, has been coughing yellow-green sputum. I am adding Zosyn IV, starting today. Sputum culture is ordered. 2. Dyspnea and tachycardia. V/Q scan report pending, was done this afternoon. 3. Hyperglycemia. Diabetes is new for him. Insulin training continues. 4. Generalized diffuse weakness. Start OT and PT with Physical Therapy consultation. 5. Aortic stenosis. HE been to a salesperson shoes before. We will do an echocardiogram with Doppler. Prognosis is overall guarded. RVD/MODL Voice ID: [id number] Report ID: [id number] CASEY
--- NOTE | 2019-03-09 23:03 | CON ---
Date of Consultation: 03/08/2019 Reason For Consultation: Right knee pain. History Of Present Illness: Mr. Pickett is an 83-year-old male who was admitted to the hospital on Feb, for multiple falls as well as hyperglycemia. Patient was admitted with a glucose of 1400 and dehydration. He has had multiple falls at home as well as lethargy. I was consulted for e valuation of right knee pain that he says he developed after 1 of his falls. He reports difficulty w ith ambulation secondary to his right knee pain. At this time, he is working with Physical Therapy. Review of Systems: As above, otherwise negative. Past Medical History: Newly diagnosed diabetes, hypertension, BPH, hypercholesterolemia, hypothyroid ism, COPD. Allergies: TO ALBUTEROL. Home Medications: Avodart, Seroquel, simvastatin, Flexeril, hydrocodone, levothyroxine, Zometa, Flom ax, Lyrica, spironolactone, hydrochlorothiazide. Social History: Denies tobacco use. Reports occasional alcohol use. Denies drug use. [facility]. Physical Examination: General: No apparent distress. HEENT: Normocephalic, atraumatic. Neck: Supple. Cardiovascular: Brisk cap refill to all digits. Chest: Nonlabored breathing. Abdomen: Nondistended. Psychiatric: Response to exam. Musculoskeletal: Right lower extremity; he has tenderness to palpation over the anterior aspect of t he right knee with a mild to moderate effusion. No erythema and no warmth. No pain with range of mo tion of the right knee. Stable to varus valgus stress as well as anterior drawer and posterior drawe r. X-rays: X-rays of the right knee are negative for any fracture or dislocation. Assessment/plan: Mr. Pickett is an 83-year-old male with right knee contusion and underlying osteoarth ritis. I discussed with the patient and his family at length risks and benefits associated with his diagnosis and treatment. We will proceed with conservative treatment measures at this time. No surg ical intervention is indicated. We will proceed with RICE therapy, ice the knee, place compression, Lenard bandage, and continue to work with physical therapy. He will follow up in clinic as needed. CV/MODL Voice ID: [id number] Report ID: [id number]
[2019-03-10] MEDS: ALBUTEROL 2.5 MG/3 ML NEB SOL NEB SCH ×4 (01:20→20:00)
[2019-03-10] MEDS: IPRATROPIUM BROM 0.5MG/2.5ML NEB SCH ×4 (01:20→20:00)
[2019-03-10 05:10] LABS: Absolute Lymphocytes (CBC) 0.9 K/uL (0.7-4.9); Basophils % 0.2 % (0-1.3); Hematocrit 33.9 % (39.6-49.0); Lymphocytes % 11.1 % (15.3-44.8); MPV 9.3 fL (7.6-11.3); RBC Red Blood Cell Count 3.72 M/uL (4.33-5.43)
[2019-03-10 05:28] LABS: Potassium 3.8 mmol/L (3.5-5.1)
[2019-03-10] MEDS: LEVOTHYROXINE SOD 0.088 MG TAB PO SCH (05:48)
[2019-03-10] MEDS: PIPER/TAZO/NS 2.25gm 2.25 GM/50 ML BAG IVPB SCH ×3 (05:49→16:53)
[2019-03-10] MEDS ORDERED: POTASSIUM CL SA 10 MEQ TAB PO ONE (06:02)
[2019-03-10] MEDS: INSULIN -REGULAR HUMAN 50 UNIT/0.5 ML ML SQ SCH ×4 (09:31→20:46)
[2019-03-10] MEDS: INSULIN GLARGINE 100 UNITS/ML SQ SCH (09:31)
[2019-03-10] MEDS: APIXABAN 2.5 MG TABLET PO SCH ×2 (09:32→21:25)
[2019-03-10] MEDS: TRAMADOL HCL 50 MG TAB PO PRN (09:32)
[2019-03-10] MEDS: ASPIRIN EC 81 MG TAB PO SCH (09:32)
[2019-03-10] MEDS: NA CHLORIDE 0.9% 1,000 ML IV SCH (09:33)
--- NOTE | 2019-03-10 10:01 | RAD REPORT ---
EXAM DESCRIPTION: NM VENT PERFUSION VQ SCAN CLINICAL HISTORY: Shortness of breath, elevated D dimer. COMPARISON: VQ scan November 2016 and portable chest March 08, 2019. TECHNIQUE: The patient was administered 13.9 millicuries Xenon 133 gas. Posterior inspiration, equilibrium and washout views performed. The patient was then administered 7.6 millicuries Tc-99 MAA. An 8 view imaging protocol was performed. FINDINGS: Elevated right hemidiaphragm can account for the relative diminishment in activity at the right lung base, Initial image shows good distribution of the radiopharmaceutical, No large ventilation defect is seen. Mild diffuse air trapping pattern is present. Overall, the exam is not substantially different from the comparison. Perfusion images show a slightly heterogeneous distribution. This is in a non- anatomic distribution. No lobar or segmental size perfusion defects seen. No suspicious pattern of sub-segmental defects identified. Overall perfusion pattern is not substantially different from the 2017 study. IMPRESSION: 1. Low probability VQ scan for a pulmonary embolism. Perfusion pattern is not substantially different from 2017 study. 2. Mild diffuse air trapping pattern on ventilation. No suspicious ventilation defect.
[2019-03-10 10:30] LABS: Urine White Blood Cell Casts OK
[2019-03-10 10:31] LABS: Blood Morphology Comment NOT SEEN (NOT SEEN); Platelet Estimate DECR
[2019-03-10] MEDS ORDERED: VANCOMYCIN/NS 1 gm 1 GM/250 ML BAG IVPB SCH (12:30)
[2019-03-10] MEDS ORDERED: COLCHICINE 0.6 MG TAB PO PRN (12:40)
[2019-03-10] MEDS ORDERED: VANCOMYCIN 2 GM in NA CHLORIDE 0.9% 500 ML IVPB ONE (13:00)
[2019-03-10] MEDS: COLCHICINE 0.6 MG TAB PO SCH ×3 (14:04→16:53)
--- NOTE | 2019-03-10 15:14 | RAD REPORT ---
EXAM DESCRIPTION: US - Lower Extremity Arterial Bilat - 03/10/2019 1:35 pm CLINICAL HISTORY: Leg pain, peripheral vascular disease COMPARISON: None. TECHNIQUE: Right brachials artery pressure measurement was obtained. Left brachial pressure measurem ent could not be obtained. Waveforms were obtained along the length of each lower extremity. Ankle pr essure measurements were obtained with index values calculated. Visual inspection of the lower extrem ity arterial tree performed. FINDINGS: YUE values are 1.23 on the right and 1.14 on the left. Biphasic waveform patterns were seen along the length of each lower extremity. No occlusion or flow r estricting lesion identifiable. No suspicious velocity or waveform pattern. No significant degree of asymmetry. IMPRESSION: No significant peripheral vascular disease in either lower extremity.
[2019-03-10] MEDS: LIDOCAINE 5% PATCH TOP SCH (16:54)
--- NOTE | 2019-03-10 17:34 | PN ---
Subjective: Feeling a lot better. Denies any chest pain, nausea, vomiting, diarrhea. Has minimal shortness of breath. Objective: Vital Signs: His blood pressure is 127/58, pulse is 107. HEENT: No JVD. No carotid bruits. Lungs: Decreased breath sounds bilaterally. Minimal wheezing. Heart: Regular. Abdomen: No guarding, no rebound, no rigidity. Laboratory Data: His BUN and creatinine are down to 33/1.63 from extremely high number before. Sugar is down to 197, down from 1500. Lung scan is negative for pulmonary embolism. Sputum is growing MRSA, which could be a contaminant at this point or colonization. Assessment And Plan: 1. Dehydration, improved as per above. 2. Diabetes mellitus, hyperglycemia, glucose down to 196. 3. Generalized debilitation. He is not able to ambulate. Will need therapy consultation, but again he has severe pain in the forefeet, which is why he is not able to ambulate. This could be gout. He has bilateral great toe inflammation, given therapeutic trial of colchicine, and check uric acid in the blood work. 4. 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 SANTIAGO/KARLOS Voice ID: [id number] Report ID: [id number] CASEY
[2019-03-10] MEDS: DUTASTERIDE 0.5 MG GEL CAP PO SCH (20:24)
[2019-03-10] MEDS: ATORVASTATIN 10 MG TAB PO SCH (20:25)
[2019-03-10] MEDS: TAMSULOSIN 0.4 MG SR CAP PO SCH (20:25)
[2019-03-10] MEDS: POLYETHYL GLY 3350 17 GM/DOSE PO PRN ×2 (20:25→21:28)
[2019-03-11] MEDS: IPRATROPIUM BROM 0.5MG/2.5ML NEB SCH ×4 (02:00→19:50)
[2019-03-11] MEDS: ALBUTEROL 2.5 MG/3 ML NEB SOL NEB SCH ×4 (02:00→19:50)
[2019-03-11] MEDS: PIPER/TAZO/NS 2.25gm 2.25 GM/50 ML BAG IVPB SCH ×4 (04:19→17:47)
[2019-03-11] MEDS: NA CHLORIDE 0.9% 1,000 ML IV SCH (04:24)
[2019-03-11 06:26] LABS: Basophils % 0.4 % (0-1.3); Lymphocytes % 11.7 % (15.3-44.8); MPV 8.7 fL (7.6-11.3); RBC Red Blood Cell Count 3.49 M/uL (4.33-5.43)
[2019-03-11 06:30] LABS: Potassium 3.6 mmol/L (3.5-5.1)
[2019-03-11] MEDS: LEVOTHYROXINE SOD 0.088 MG TAB PO SCH (07:03)
[2019-03-11] MEDS: INSULIN -REGULAR HUMAN 50 UNIT/0.5 ML ML SQ SCH ×4 (07:30→22:48)
[2019-03-11] MEDS: ASPIRIN EC 81 MG TAB PO SCH (08:12)
[2019-03-11] MEDS: APIXABAN 2.5 MG TABLET PO SCH ×2 (08:12→21:44)
[2019-03-11] MEDS: POTASSIUM CL SA 10 MEQ TAB PO SCH (08:12)
[2019-03-11] MEDS: INSULIN GLARGINE 100 UNITS/ML SQ SCH (08:13)
--- NOTE | 2019-03-11 10:21 | RAD REPORT ---
EXAM DESCRIPTION: RAD - Chest Single View - 03/11/2019 2:17 am CLINICAL HISTORY: PICC Placement COMPARISON: None. FINDINGS: Single frontal view of the chest. Tubes and lines: Right arm PICC with tip in the SVC. Cardiomediastinal silhouette: Atherosclerotic calcification thoracic aorta. Heart is not enlarged. Lungs: Low lung volumes. Linear bibasilar opacities. No pneumothorax. Possible mild bilateral pleural effusions. Likely right basilar calcified granuloma. Bones: No acute osseous abnormalities Upper abdomen: No acute abnormality identified. IMPRESSION: 1. Right arm PICC with tip in the SVC. 2. Likely bibasilar subsegmental atelectasis and possible small bilateral pleural effusions. Electronically signed by: Dashawn Montes De Oca 03/11/2019 2:40 AM CDT Due to temporary technical issues with the PACS/Fluency reporting system, reports are being signed by the in house radiologist as a courtesy to ensure prompt reporting. The interpreting radiologist is f ully responsible for the content of the report.
[2019-03-11] MEDS: COLCHICINE 0.6 MG TAB PO SCH ×3 (10:43→14:19)
[2019-03-11] MEDS: LIDOCAINE 5% PATCH TOP SCH (17:47)
[2019-03-11] MEDS: TAMSULOSIN 0.4 MG SR CAP PO SCH (21:44)
[2019-03-11] MEDS: ATORVASTATIN 10 MG TAB PO SCH (21:44)
[2019-03-11] MEDS: POLYETHYL GLY 3350 17 GM/DOSE PO PRN (21:44)
[2019-03-11] MEDS: DUTASTERIDE 0.5 MG GEL CAP PO SCH (21:45)
[2019-03-12] MEDS: NA CHLORIDE 0.9% 1,000 ML IV SCH ×2 (00:33→17:50)
[2019-03-12] MEDS: PIPER/TAZO/NS 2.25gm 2.25 GM/50 ML BAG IVPB SCH ×4 (00:33→18:42)
[2019-03-12] MEDS: ALBUTEROL 2.5 MG/3 ML NEB SOL NEB SCH ×4 (02:00→20:00)
[2019-03-12] MEDS: IPRATROPIUM BROM 0.5MG/2.5ML NEB SCH ×4 (02:00→20:00)
[2019-03-12] MEDS: VANCOMYCIN 1.5 GM in NA CHLORIDE 0.9% 500 ML IVPB SCH (02:44)
--- NOTE | 2019-03-12 03:16 | PN ---
Subjective: He is feeling a lot better. Denies any chest pain, nausea, vomiting. Denies any double vision, blurred vision, paralysis, tingling, or numbness. Physical Examination: Vital Signs: Blood pressure 131/72, pulse is 95, temperature 97.4. His O2 saturation is up to 98% o n 2 L nasal cannula. HEENT: No JVD. No carotid bruits. Chest: Decreased breath sounds bilaterally. Heart: Regular. Abdomen: No guarding, no rebound, no rigidity. Laboratory Examination: Hemoglobin is 10.9, hematocrit 32, platelet count is 32,000 which is improvi ng. Creatinine 1.45. Uric acid is 4.8. Assessment And Plan: 1.Hyperglycemia, has improved down from 1500 glucose to less than 150 now. 2.Dehydration, improved down to creatinine 1.47, which is almost normal. 3.Inability to ambulate with therapies because of severe pain in the feet. He has pain in the foref eet. Both great toe bases are edematous. I have placed him on colchicine with suspicion of gout, bu t his uric acid is 4.8, which is normal. He could have a pseudogout, which will not give you elevate d uric acid, but when his symptom hopefully is clinically improved, he can do ambulation. We will re deven him to rehab otherwise. 4.Chronic obstructive pulmonary disease exacerbation with a yellowish to green sputum. He is on Zos yn IV now. I am stopping Levaquin because it did not work. He is also on vancomycin because his spu igor is growing methicillin-resistant Staphylococcus aureus even though he has no pneumonia. It is st ill due to treatment because it is hospital acquired and at the same time he has chronic obstructive pulmonary disease. Prognosis remains overall guarded. RVD/MODL Voice ID: [id number] Report ID: [id number]
[2019-03-12 05:21] LABS: Absolute Lymphocytes (CBC) 1.4 K/uL (0.7-4.9); Basophils % 0.6 % (0-1.3); Hematocrit 34.4 % (39.6-49.0); Lymphocytes % 14.7 % (15.3-44.8); MPV 8.2 fL (7.6-11.3); RBC Red Blood Cell Count 3.79 M/uL (4.33-5.43)
[2019-03-12] MEDS: LEVOTHYROXINE SOD 0.088 MG TAB PO SCH (05:25)
[2019-03-12 05:50] LABS: Potassium 3.6 mmol/L (3.5-5.1)
[2019-03-12] MEDS: INSULIN -REGULAR HUMAN 50 UNIT/0.5 ML ML SQ SCH ×4 (07:30→21:00)
[2019-03-12] MEDS: ASPIRIN EC 81 MG TAB PO SCH (08:20)
[2019-03-12] MEDS: APIXABAN 2.5 MG TABLET PO SCH ×2 (08:20→20:41)
[2019-03-12] MEDS: INSULIN GLARGINE 100 UNITS/ML SQ SCH (08:21)
[2019-03-12] MEDS ORDERED: POTASSIUM 25 MEQ EFFERV TAB PO ONE (09:00)
[2019-03-12] MEDS: POTASSIUM CL SA 10 MEQ TAB PO SCH (09:00)
[2019-03-12] MEDS: LIDOCAINE 5% PATCH TOP SCH (17:50)
[2019-03-12] MEDS: TAMSULOSIN 0.4 MG SR CAP PO SCH (20:42)
[2019-03-12] MEDS: DUTASTERIDE 0.5 MG GEL CAP PO SCH (20:42)
[2019-03-12] MEDS: ATORVASTATIN 10 MG TAB PO SCH (20:42)
[2019-03-13] MEDS: PIPER/TAZO/NS 2.25gm 2.25 GM/50 ML BAG IVPB SCH ×4 (01:05→18:27)
[2019-03-13] MEDS: IPRATROPIUM BROM 0.5MG/2.5ML NEB SCH ×4 (02:00→20:00)
[2019-03-13] MEDS: ALBUTEROL 2.5 MG/3 ML NEB SOL NEB SCH ×4 (02:00→20:00)
[2019-03-13 05:19] LABS: Absolute Lymphocytes (CBC) 0.7 K/uL (0.7-4.9); Basophils % 0.5 % (0-1.3); Hematocrit 28.6 % (39.6-49.0); Lymphocytes % 11.4 % (15.3-44.8); RBC Red Blood Cell Count 3.18 M/uL (4.33-5.43)
[2019-03-13] MEDS: LEVOTHYROXINE SOD 0.088 MG TAB PO SCH (05:21)
[2019-03-13 05:42] LABS: Potassium 3.2 mmol/L (3.5-5.1)
[2019-03-13 06:52] LABS: Phosphorus 1.9 mg/dL (2.5-4.9)
[2019-03-13] MEDS: INSULIN -REGULAR HUMAN 50 UNIT/0.5 ML ML SQ SCH ×4 (07:30→20:59)
[2019-03-13] MEDS: INSULIN GLARGINE 100 UNITS/ML SQ SCH (08:59)
[2019-03-13] MEDS ORDERED: POTASSIUM 25 MEQ EFFERV TAB PO ONE (09:00)
[2019-03-13] MEDS ORDERED: Magnesium Sulfate 2gm IVPB 2 G/50 ML BAG IV ONE (09:00)
[2019-03-13] MEDS: ASPIRIN EC 81 MG TAB PO SCH (09:00)
[2019-03-13] MEDS: POTASSIUM CL SA 10 MEQ TAB PO SCH (09:00)
[2019-03-13] MEDS: APIXABAN 2.5 MG TABLET PO SCH ×2 (09:01→20:56)
[2019-03-13] MEDS: TRAMADOL HCL 50 MG TAB PO PRN (09:39)
[2019-03-13] MEDS: NA CHLORIDE 0.9% 1,000 ML IV SCH (09:40)
[2019-03-13] MEDS: POTASS/SODIUM PHOSPHATE 1 PKT POWD.PACK PO SCH ×3 (09:43→14:11)
[2019-03-13] MEDS ORDERED: POTASS/SODIUM PHOSPHATE 1 PKT POWD.PACK PO SCH (14:00)
--- NOTE | 2019-03-13 14:06 | P.PN ---
Subjective Date of Service: 03/12/19 Chief Complaint: FALLS OFTEN Subjective: Improving HE IS STILL WEAK, STARTED TO WALK NOW. COUGH AND WHEEZES CONTINUE. NOTE DONE ONE DAY LATE HOSPITAL HAD SYSTEM WIDE PROBLEMS. Review of Systems 10-point ROS is otherwise unremarkable General: Weakness, Malaise Respiratory: Shortness of Breath, Other, As per HPI Physical Examination - Vital Signs Temperature: 97.1 F Blood Pressure: 169/66 Pulse: 77 Respirations: 19 Pulse Ox (%): 98 - Physical Exam General: Alert, Oriented x3, Acute distress, Mild distress HEENT: Atraumatic, PERRLA, EOMI Neck: Supple, JVD not distended Respiratory: Diminished Cardiovascular: Regular rate/rhythm, Normal S1 S2 Gastrointestinal: Normal bowel sounds, No tenderness Musculoskeletal: No tenderness Integumentary: No rashes Neurological: Normal speech, Normal tone, Normal affect Lymphatics: No axilla or inguinal lymphadenopathy - Studies Medications List Reviewed: Yes Assessment And Plan - Current Problems (Diagnosis) (1) Hyperglycemia Current Visit: Yes Status: Acute Plan: HE IS ON INSULIN DRIP. I RAISED TO 10 UNITS PER HOUR. HOURLY GLUCOSE AND REDUCE DRIP DOWN TO Q4H SLIDING SCALE WHEN GLUCOSE IS DOWN TO 400. THIS IS NOT DKA. SHOULD IMPROVE BY AM. (2) Newly diagnosed diabetes Current Visit: Yes Status: Acute Plan: CHECK CPEP LEVEL. INSULIN TEACHING. MAY BE ABLE TO GET OFF INSULIN. (3) COPD (chronic obstructive pulmonary disease) Current Visit: Yes Status: Chronic Plan: NEBS PRN. CONTINUES TO HAVE WHEEZES RESUME ABX HE ALREADY HAD CXR DONE. STEROIDS PRN. (4) Prerenal azotemia Current Visit: Yes Status: Acute (5) Prerenal azotemia Current Visit: Yes Status: Acute Plan: IV FLULIDS DAILY LABS. (6) Hypoxia Onset Date: 10/24/15 Current Visit: No Status: Chronic Plan: WORSE NOW WITH ACUTE ILLNESS. CT SHOWS NO MAJOR INFECTION. (7) Insomnia Current Visit: Yes Status: Chronic Plan: MOST MEDICINES HAVE NOT WORKED BUT SONATA AND QUETIAPEN WORKED. 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 HAS SEVERE NEUROPATHY. HE HAD NEUROPATHY WAY BEFORE THIS DIABETES ONSET.
[2019-03-13] MEDS: VANCOMYCIN 1.5 GM in NA CHLORIDE 0.9% 500 ML IVPB SCH (14:11)
--- NOTE | 2019-03-13 14:41 | P.PN ---
Subjective Date of Service: 03/13/19 Chief Complaint: FALLS OFTEN HE IS STILL WEAK, STARTED TO WALK NOW. COUGH AND WHEEZES CONTINUE. NOTE DONE ONE DAY LATE HOSPITAL HAD SYSTEM WIDE PROBLEMS. Physical Examination - Vital Signs Temperature: 97.1 F Blood Pressure: 169/66 Pulse: 77 Respirations: 19 Pulse Ox (%): 98 - Studies Medications List Reviewed: Yes Assessment And Plan - Current Problems (Diagnosis) (1) Hyperglycemia Current Visit: Yes Status: Acute Plan: HE IS ON INSULIN DRIP. I RAISED TO 10 UNITS PER HOUR. HOURLY GLUCOSE AND REDUCE DRIP DOWN TO Q4H SLIDING SCALE WHEN GLUCOSE IS DOWN TO 400. THIS IS NOT DKA. SHOULD IMPROVE BY AM. (2) Newly diagnosed diabetes Current Visit: Yes Status: Acute Plan: CHECK CPEP LEVEL. INSULIN TEACHING. MAY BE ABLE TO GET OFF INSULIN. (3) COPD (chronic obstructive pulmonary disease) Current Visit: Yes Status: Chronic Plan: NEBS PRN. CONTINUES TO HAVE WHEEZES RESUME ABX HE ALREADY HAD CXR DONE. STEROIDS PRN. (4) Prerenal azotemia Current Visit: Yes Status: Acute (5) Prerenal azotemia Current Visit: Yes Status: Acute Plan: IV FLULIDS DAILY LABS. (6) Hypoxia Onset Date: 10/24/15 Current Visit: No Status: Chronic Plan: WORSE NOW WITH ACUTE ILLNESS. CT SHOWS NO MAJOR INFECTION. (7) Insomnia Current Visit: Yes Status: Chronic Plan: MOST MEDICINES HAVE NOT WORKED BUT SONATA AND QUETIAPEN WORKED. 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 HAS SEVERE NEUROPATHY. HE HAD NEUROPATHY WAY BEFORE THIS DIABETES ONSET.
[2019-03-13] MEDS ORDERED: POTASSIUM PHOS 20 MEQ in NA CHLORIDE 0.9% 250 ML IV ONE (15:00)
[2019-03-13] MEDS ORDERED: dexAMETHasone 10 MG/ML VIAL IV ONE (15:00)
[2019-03-13 15:18] LABS: Magnesium 1.8 mg/dL (1.8-2.4); Potassium 3.7 mmol/L (3.5-5.1)
[2019-03-13] MEDS ORDERED: MAGNESIUM SULFATE 1 gm IVPB 1 GM/100 ML BAG IV ONE (18:00)
[2019-03-13] MEDS: LIDOCAINE 5% PATCH TOP SCH (18:27)
[2019-03-13] MEDS: POTASSIUM CL SA 10 MEQ TAB PO ONE ×2 (18:30→18:37)
[2019-03-13] MEDS: ARFORMOTEROL TARTRATE 15 MCG/2 ML VIAL.NEB NEB SCH (20:00)
[2019-03-13] MEDS: TAMSULOSIN 0.4 MG SR CAP PO SCH (20:57)
[2019-03-13] MEDS: DUTASTERIDE 0.5 MG GEL CAP PO SCH (20:57)
[2019-03-13] MEDS: ATORVASTATIN 10 MG TAB PO SCH (20:57)
[2019-03-13] MEDS: ENSURE HIGH PROTEIN 237 ML CAN PO SCH (20:59)
[2019-03-13] MEDS ORDERED: KCL 20 MEQ/100 mL IVPB 20 MEQ/100 ML BAG IV SCH (21:00)
[2019-03-14] MEDS: PIPER/TAZO/NS 2.25gm 2.25 GM/50 ML BAG IVPB SCH ×5 (01:10→23:59)
[2019-03-14] MEDS: IPRATROPIUM BROM 0.5MG/2.5ML NEB SCH ×4 (02:00→20:05)
[2019-03-14] MEDS: ALBUTEROL 2.5 MG/3 ML NEB SOL NEB SCH ×4 (02:00→20:05)
[2019-03-14] MEDS: TRAMADOL HCL 50 MG TAB PO PRN (02:36)
[2019-03-14] MEDS: LEVOTHYROXINE SOD 0.088 MG TAB PO SCH (05:59)
[2019-03-14] MEDS: NA CHLORIDE 0.9% 1,000 ML IV SCH ×2 (06:00→17:29)
[2019-03-14 06:09] LABS: Magnesium 1.7 mg/dL (1.8-2.4); Phosphorus 2.3 mg/dL (2.5-4.9); Potassium 4.2 mmol/L (3.5-5.1)
[2019-03-14] MEDS: INSULIN -REGULAR HUMAN 50 UNIT/0.5 ML ML SQ SCH ×4 (07:30→21:00)
[2019-03-14] MEDS: ARFORMOTEROL TARTRATE 15 MCG/2 ML VIAL.NEB NEB SCH ×2 (08:05→20:05)
[2019-03-14] MEDS: ENSURE HIGH PROTEIN 237 ML CAN PO SCH ×2 (08:44→21:34)
[2019-03-14] MEDS: ASPIRIN EC 81 MG TAB PO SCH (08:45)
[2019-03-14] MEDS: APIXABAN 2.5 MG TABLET PO SCH ×2 (08:45→21:32)
[2019-03-14] MEDS: INSULIN GLARGINE 100 UNITS/ML SQ SCH (08:45)
[2019-03-14] MEDS: POTASS/SODIUM PHOSPHATE 1 PKT POWD.PACK PO SCH ×3 (08:46→09:38)
[2019-03-14] MEDS: POTASSIUM CL SA 10 MEQ TAB PO SCH (08:46)
[2019-03-14] MEDS ORDERED: MAGNESIUM SULFATE 1 gm IVPB 1 GM/100 ML BAG IV ONE (09:00)
[2019-03-14] MEDS: HYDROCODONE/APAP 5/325 MG TAB PO PRN ×2 (09:32→21:33)
[2019-03-14] MEDS: LIDOCAINE 5% PATCH TOP SCH (17:30)
[2019-03-14] MEDS ORDERED: POTASSIUM CL SA 10 MEQ TAB PO ONE (18:00)
[2019-03-14] MEDS: ALTEPLASE 2 MG/VIAL IV SCH (19:00)
--- NOTE | 2019-03-14 19:43 | PN ---
Subjective: Mr. Pickett has been a lot better. Denies any chest pain, nausea, or vomiting. Last night, he had severe back pain and he asked for his Alpha. Otherwise, he is feeling a lot better now with the pain medication. Physical Examination: Vital Signs: Blood pressure 102/59, pulse is 94. HEENT: No JVD. No carotid bruits. Chest: Minimal wheezing bilaterally. Heart: Regular. Abdomen: No guarding, no rebound, no rigidity. Extremities: Feet examination chronic congestion in feet- He has blue discoloration of the feet, but he has good pulses. There is some venous congestion. Laboratory Data: BUN is 20, creatinine 1.36, back to normal. Sugar is 165. Assessment And Plan: 1. Severe hyperglycemia, has cleared now. He is on Lantus 30 units subcu daily. 2. Chronic obstructive pulmonary disease and bronchitis due to different bacteria, Serratia and methicillin-resistant Staphylococcus aureus. He is on vancomycin and Zosyn at this point. His x-ray shows no pneumonia, but he has been treated for COPd with acute bronchitis and pos cultures. 3. Severe neuropathy. He is on medications for that with some chemical neuropathy in the past. 4. Severe back pain. He takes Alpha off and on. 5. Insomnia. Multiple medications have been tried. He has been on Sonata, which is what works for him. Prognosis overall guarded. We are waiting for detention. He is possibly now good enough to go on Saturday; on Saturday, did not feel comfortable sending him, he would return back to hospital for no obvious reason. SANTIAGO/KARLOS Voice ID: [id number] Report ID: [id number] CASEY
[2019-03-14] MEDS: DUTASTERIDE 0.5 MG GEL CAP PO SCH (21:29)
[2019-03-14] MEDS: TAMSULOSIN 0.4 MG SR CAP PO SCH (21:33)
[2019-03-14] MEDS: ATORVASTATIN 10 MG TAB PO SCH (21:40)
[2019-03-14] MEDS: ZALEPLON PO SCH (23:59)
[2019-03-15] MEDS: ALBUTEROL 2.5 MG/3 ML NEB SOL NEB SCH ×4 (01:35→20:00)
[2019-03-15] MEDS: IPRATROPIUM BROM 0.5MG/2.5ML NEB SCH ×4 (01:35→20:00)
[2019-03-15] MEDS: NA CHLORIDE 0.9% 1,000 ML IV SCH ×3 (02:00→22:00)
[2019-03-15] MEDS: VANCOMYCIN 1.5 GM in NA CHLORIDE 0.9% 500 ML IVPB SCH (02:02)
[2019-03-15 05:25] LABS: Magnesium 1.5 mg/dL (1.8-2.4); Phosphorus 2.2 mg/dL (2.5-4.9); Potassium 3.6 mmol/L (3.5-5.1)
[2019-03-15] MEDS: PIPER/TAZO/NS 2.25gm 2.25 GM/50 ML BAG IVPB SCH ×4 (05:28→23:21)
[2019-03-15] MEDS: HYDROCODONE/APAP 5/325 MG TAB PO PRN ×3 (05:29→23:21)
[2019-03-15] MEDS: LEVOTHYROXINE SOD 0.088 MG TAB PO SCH (05:30)
[2019-03-15] MEDS: INSULIN -REGULAR HUMAN 50 UNIT/0.5 ML ML SQ SCH ×4 (07:30→21:00)
[2019-03-15] MEDS: INSULIN GLARGINE 100 UNITS/ML SQ SCH ×2 (08:00→08:53)
[2019-03-15] MEDS: ARFORMOTEROL TARTRATE 15 MCG/2 ML VIAL.NEB NEB SCH ×2 (08:08→20:00)
[2019-03-15] MEDS: POTASSIUM CL SA 10 MEQ TAB PO SCH (08:50)
[2019-03-15] MEDS: ENSURE HIGH PROTEIN 237 ML CAN PO SCH ×2 (08:54→21:00)
[2019-03-15] MEDS: APIXABAN 2.5 MG TABLET PO SCH ×2 (08:54→23:12)
[2019-03-15] MEDS: ASPIRIN EC 81 MG TAB PO SCH (08:54)
[2019-03-15] MEDS ORDERED: POTASSIUM CL SA 10 MEQ TAB PO ONE (09:00)
[2019-03-15] MEDS ORDERED: POTASSIUM PHOS IN 0.9 % NACL 15 MMOL/250 ML BAG IV ONE (09:00)
[2019-03-15] MEDS ORDERED: Magnesium Sulfate 2gm IVPB 2 G/50 ML BAG IV ONE (09:00)
--- NOTE | 2019-03-15 15:26 | PN ---
Subjective: Mr. Pickett is feeling a lot better. He is much more awake, talking to people. Denies an y chest pain, nausea, vomiting. His present shortness of breath has improved. Objective: Vital Signs: Blood pressure is 129/67. Chest: Clear. Heart: Regular. Abdomen: No guarding, no rebound, no rigidity. Extremities: Feet examination, he has chronic reyes es in his feet with chronic venous vascular changes. Pulses are good. Laboratory Data: His creatinine is down to 1.32. Sugar is down to 103. Platelet count is 45,000. WBC 6300, normal. Assessment And Plan: 1.Hyperglycemia resolved. Diabetes, much improved. I am reducing the dose of Lantus down to 15 uni ts as he is starting to have low numbers. 2.Dehydration. Clinically back to 1.32 creatinine, almost back to his normal baseline. 3.Chronic obstructive pulmonary disease with acute bronchitis. Continue vancomycin and Zosyn for se rratia and methicillin-resistant Staphylococcus aureus from the sputum. Clinically improving. 4.Generalized weakness. He will continue therapy at care home. He will be discharged tomorrow. 5.Sever neuropathy in the feet. He is on his chronic medications now. RVD/MODL Voice ID: [id number] Report ID: [id number]
[2019-03-15] MEDS ORDERED: WATER FOR INJ,STERILE 10 ML IV SCH (15:30)
[2019-03-15] MEDS: ALTEPLASE 2 MG/VIAL IV SCH (15:48)
[2019-03-15] MEDS ORDERED: MAGNESIUM SULFATE 1 gm IVPB 1 GM/100 ML BAG IV ONE (17:51)
[2019-03-15] MEDS: LIDOCAINE 5% PATCH TOP SCH (18:11)
[2019-03-15] MEDS: ATORVASTATIN 10 MG TAB PO SCH (21:00)
[2019-03-15] MEDS: DUTASTERIDE 0.5 MG GEL CAP PO SCH (23:12)
[2019-03-15] MEDS: ZALEPLON PO SCH (23:13)
[2019-03-15] MEDS: TAMSULOSIN 0.4 MG SR CAP PO SCH (23:13)
[2019-03-16] MEDS: PIPER/TAZO/NS 2.25gm 2.25 GM/50 ML BAG IVPB SCH ×2 (07:04→12:57)
[2019-03-16] MEDS: LEVOTHYROXINE SOD 0.088 MG TAB PO SCH (07:05)
[2019-03-16] MEDS: HYDROCODONE/APAP 5/325 MG TAB PO PRN (07:05)
[2019-03-16] MEDS: INSULIN -REGULAR HUMAN 50 UNIT/0.5 ML ML SQ SCH ×3 (07:30→16:30)
[2019-03-16] MEDS: ALBUTEROL 2.5 MG/3 ML NEB SOL NEB SCH ×2 (08:18→14:05)
[2019-03-16] MEDS: IPRATROPIUM BROM 0.5MG/2.5ML NEB SCH ×2 (08:18→14:05)
[2019-03-16] MEDS: ARFORMOTEROL TARTRATE 15 MCG/2 ML VIAL.NEB NEB SCH (08:20)
[2019-03-16] MEDS ORDERED: HYDROCODONE/APAP 5/325 MG TAB PO PRN (08:23)
[2019-03-16] MEDS: POTASSIUM CL SA 10 MEQ TAB PO SCH (09:00)
[2019-03-16] MEDS: ENSURE HIGH PROTEIN 237 ML CAN PO SCH (09:00)
[2019-03-16] MEDS: INSULIN GLARGINE 100 UNITS/ML SQ SCH (09:11)
[2019-03-16] MEDS: APIXABAN 2.5 MG TABLET PO SCH (09:12)
[2019-03-16] MEDS: ASPIRIN EC 81 MG TAB PO SCH (09:12)
[2019-03-16 12:33] VITALS: TEMP 97.6
[2019-03-16] MEDS: VANCOMYCIN 1.5 GM in NA CHLORIDE 0.9% 500 ML IVPB SCH (14:33)
[2019-03-16 16:17] VITALS: O2SAT 97
[2019-03-16 19:07] VITALS: BP 125/76
--- NOTE | 2019-03-16 20:46 | P.DS ---
Admission Date: 03/05/19 Discharge Date: 03/16/19 Disposition: TRANSFER TO SNF - MEDICAL Discharge Condition: FAIR Reason for Admission: FALLS OFTEN - Problems (1) Hyperglycemia Status: Acute (2) Newly diagnosed diabetes Status: Acute (3) COPD (chronic obstructive pulmonary disease) Status: Chronic Qualifiers: COPD type: emphysema Emphysema type: unspecified Qualified Code(s): J43.9 - Emphysema, unspecified (4) Prerenal azotemia Status: Acute (5) Prerenal azotemia Status: Acute (6) Hypoxia Onset Date: 10/24/15 Status: Chronic (7) Insomnia Status: Chronic Qualifiers: Insomnia type: primary Qualified Code(s): F51.01 - 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 MARX IS 83 YEARS OLD GM WITH COPD, SEVERE CHEMICAL NEUROPATHY, SEVERE INSOMNIA WHOSE LAST GLUCOSE WAS IN 110 RANGE COMES WITH FRQUENT FALLS, HAS GLUCOSE OF 1400 TODAY AND DEHYDRATION. I CHECKED MY RECORDS, I HAVE GIVEN HIM ORDER TO DO LAB WORK ABOUT5 TIMES IN LAST TWO YEARS BUT HE HAS NOT DONE SO. HE IS NOT FORGETFUL BUT HE JUST IGNORED THE ADVISE. 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 HE LATELY HAS BEEN LETHARGIC AND FALLING OFTEN PER . Hospital Course: MR. MARX CAME WITH SEVERE HYPERGLYCEMIA AND NEW ONSET DM WITH GLUCOSE OF 1750. HE IMPROVED ON IV DRIP OF INSULIN THAT WAS TAKEN OFF AFER A DAY. HE TOOK LONG TIME TO RECOVER BEACUASE OF COMORBIDITIES LIKE COPD WITH BRONCHITIS , TWO BACTERIA FROM CULTURE, NEEDING IV ABX VANCOMYCIN AND ZOSYN. HE ALSO HAD RENAL FAILURE THAT IMPROVED NOW DOWN TO 1.3 ON CREATININE. I GAVE FEW DAYS OF ELIQUIS BID HE WAS HIGH RISK OF DVT AND HE DROPPED HIS PLATELTES ON LOVENOX SC. HE IS STABLE AT [place]. HE NEEDS QID NORCO FOR CHRONIC SEVERE BACK AIN AND CHR SEVERE NEUROPATHY. HE WILL GO TO [facility] FOR HIS PAIN HE NEED HIGH DOSE OF NORCO. Vital Signs/Physical Exam: Temp Pulse Resp BP Pulse Ox 97.6 F 85 20 125/76 96 03/16/19 16:00 03/16/19 16:00 03/16/19 16:00 03/16/19 16:00 03/16/19 16:00 Laboratory Data at Discharge: WBC 6.3 K/uL (4.3-10.9) D 03/13/19 04:35 Hgb 10.0 g/dL (13.6-17.9) L 03/13/19 04:35 Hct 28.6 % (39.6-49.0) L D 03/13/19 04:35 Plt Count 145 K/uL (152-406) L D 03/13/19 04:35 PT 12.7 SECONDS (9.5-12.5) H 03/05/19 10:51 INR 1.08 03/05/19 10:51 APTT 26.4 SECONDS (24.3-36.9) 03/05/19 10:51 Sodium 144 mmol/L (136-145) 03/15/19 04:40 Potassium 3.6 mmol/L (3.5-5.1) 03/15/19 04:40 BUN 18 mg/dL (7-18) 03/15/19 04:40 Creatinine 1.32 mg/dL (0.55-1.3) H 03/15/19 04:40 Glucose 103 mg/dL (74-106) 03/15/19 04:40 Uric Acid 4.8 mg/dL (3.5-7.2) 03/11/19 05:30 Phosphorus 2.2 mg/dL (2.5-4.9) L 03/15/19 04:40 Magnesium 1.7 mg/dL (1.8-2.4) L 03/15/19 16:20 Total Bilirubin 1.3 mg/dL (0.2-1.0) H 03/05/19 10:51 AST 27 U/L (15-37) 03/05/19 10:51 ALT 48 U/L (12-78) 03/05/19 10:51 Alkaline Phosphatase 70 U/L (45-117) 03/05/19 10:51 Troponin I < 0.02 ng/mL (0.0-0.045) 03/06/19 00:32 LDL Cholesterol Direct 82 mg/dL (100-129) L 03/05/19 20:59 Lipase 691 U/L (73-393) H 03/05/19 10:51 Home Medications: Dutasteride [Avodart*] 0.5 mg PO BEDTIME 08/07/13 Quetiapine [Seroquel*] 50 mg PO BEDTIME 08/07/13 Simvastatin 20 mg PO BEDTIME 08/07/13 Budesonide/Formoterol Fumarate [Symbicort 160-4.5 Mcg Inhaler] 1 puff IN DAILY 10/21/15 Cyclobenzaprine HCl [Flexeril] 10 mg PO TID PRN 10/21/15 Levothyroxine Sodium 88 mcg PO DAILY 10/21/15 Zaleplon [Sonata] 10 mg PO BEDTIME 10/21/15 Tamsulosin [Flomax*] 0.4 mg PO BEDTIME #30 cap 10/25/15 Pregabalin [Lyrica] 150 mg PO BID 03/05/19 Albuterol Neb [Proventil 0.083% Neb Soln] 2.5 mg NEB [id number] amp 03/16/19 Arformoterol Tartrate [Brovana] 15 mcg NEB BIDRESP vial.neb 03/16/19 Hydrocodone 5/APAP 325 [[place] 5/325*] 1 tab PO Q8H PRN tab 03/16/19 Insulin -Regular Human [Novolin -R*] See Protocol SQ ACHS ml 03/16/19 Insulin Glargine Human [Lantus*] 15 units SQ DAILY WITH BREAKFAST ml 03/16/19 Ipratropium Neb [Atrovent*] 0.5 mg NEB [id number] amp 03/16/19 Lidocaine 5% Patch [Lidoderm 5% Patch*] 1 patch TOP DAILY 6PM patch 03/16/19 Polyethyl Gly 3350 [Glycolax*] 17 gm PO DAILY PRN udbot 03/16/19 Zaleplon (Sonata) 0 mg PO BEDTIME 03/16/19 Diet: ADA Activity: Fall precautions Followup: Yonatan Montano MD [COURTESY - CAN ADMIT] - (please call to make an appointment. )
== END 2019-03-16 17:20 | DRG 638 ==
LOC: ER 10:25 → ERHOLD 14:39 → 3RD-ICU 17:55 → 2ND 03-06 18:12
PROVIDERS: ADMIT Internal Medicine; ATTEND Internal Medicine
PROC: 02HV33Z Insertion of Infusion Device into Superior Vena Cava, Percutaneous Approach (ICD-10-PCS; principal; 2019-03-11)
DX: E11.65 Type 2 diabetes mellitus with hyperglycemia (principal); J44.1 Chronic obstructive pulmonary disease with (acute) exacerbation; J44.0 Chronic obstructive pulmonary disease with (acute) lower respiratory infection; G47.00 Insomnia, unspecified; E86.0 Dehydration; I10 Essential (primary) hypertension; E78.00 Pure hypercholesterolemia, unspecified; R09.02 Hypoxemia; G62.2 Polyneuropathy due to other toxic agents; R00.0 Tachycardia, unspecified; I35.0 Nonrheumatic aortic (valve) stenosis; M25.561 Pain in right knee; S80.01XA Contusion of right knee, initial encounter; M17.11 Unilateral primary osteoarthritis, right knee; E03.9 Hypothyroidism, unspecified; N40.0 Benign prostatic hyperplasia without lower urinary tract symptoms; W19.XXXA Unspecified fall, initial encounter; T65.91XA Toxic effect of unspecified substance, accidental (unintentional), initial encounter
CPT/HCPCS: 36415; 51702; 71045; 71250; 78582; 80048; 80076; 80202; 81003; 81015; 82550; 82805; 82947; 82962; 83036; 83605; 83690; 83735; 83880; 83930; 84100; 84132; 84145; 84484; 84550; 84681; 85025; 85379; 85610; 85730; 87040; 87070; 87077; 87186; 87205; 93005; 93306; 93925; 94640; 94667; 94668; 94760; 96361; 96365; 96366; 96368; 97110; 97116; 97530; 99285; A9540; A9558; J1100; J1650; J1815; J2405; J2997; J3475; J7030; J7040; J7605